=== PATIENT | male | born 1985 | race Caucasian/White ===

== ENCOUNTER 2020-05-28 10:28 | Emergency (ER) | payer OTHER ==
[~2020-05-28] VITALS: Ht 170.2 cm; Wt 73.5 kg
--- OUTSIDE RECORDS SUMMARY | ~2020-05-28 | XMS | Encounter Summary ---
Demographics + + + | Address | [address] | | | [place] [address] | + + + | Home Phone | | + + + | Preferred Language | Unknown | + + + | Marital Status | | + + + | Christian Affiliation | 1013 | + + + | Race | Unknown | + + + | Ethnic Group | Unknown | + + + Author + + + | Author | [facility] | | | and [place] | + + + | Organization | [facility] | | | and [place] | + + + | Address | Unknown | + + + | Phone | Unavailable | + + + Support + + + + + | Name | Relationship | Address | Phone | + + + + + | Maria G Langston | ECON | [address] | | | | | [place] [address] | | + + + + + | James Langston | ECON | Unknown | | + + + + + Care Team Providers + +------+ + | Care Range Aide Name | Role | Phone | + +------+ + | Ferdinand Arguello MD | PCP | | + +------+ + Reason for Visit + + + | Reason | Comments | + + + | Ulcerative Colitis | microscopic colitis | + + + | Hematochezia | | + + + Evaluate & Treat (Routine) +--------+--------+ + + + + | Status | Reason | Specialty | Diagnoses / | Referred By | Referred To | | | | | Procedures | Contact | Contact | +--------+--------+ + + + + | Closed | | Gastroenterol | Diagnoses | Byers, | Ambrocio, | | | | ogy | Infectious | Job | Daniel Newsome MD | | | | | diarrhea(009 | Rubin, DO | [address], | | | | | .2) | [address] | [address] | | | | | Hemorrhage | [address], [address] | [place], | | | | | of rectum | [place], | [place] [address] | | | | | and anus | [place] | Phone: | | | | | Blood in | [address] | [phone] | | | | | stool | Phone: | Fax: | | | | | | [phone] | [phone] | | | | | | Fax: | | | | | | | [phone] | | +--------+--------+ + + + + Encounter Details +--------+---------+ + + + | Date | Type | Department | Care Team | Description | +--------+---------+ + + + | 02/23/ | Office | [facility] | Daniel Albrecht MD | Infectious | | 2015 | Visit | GASTROENTEROLOGY | [address], [facility] | diarrhea(009.2) | | | | [address] [facility] | [address] | (Primary Dx); | | | | [address] | [address] | Hemorrhage of rectum | | | | [address] | | and anus | | | | [phone] | | | +--------+---------+ + + + Social History + +-------+ +--------+------+ | Tobacco Use | Types | Packs/Day | Years | Date | | | | | Used | | + +-------+ +--------+------+ | Never Smoker | | | | | + +-------+ +--------+------+ + +---+---+---+ | Smokeless Tobacco: | | | | | Never Used | | | | + +---+---+---+ + + +---------+ + | Alcohol Use | Drinks/Week | oz/Week | Comments | + + +---------+ + | No | | | | + + +---------+ + + + + | Sex Assigned at | Date Recorded | | | | + + + | Not on file | | + + + documented as of this encounter Last Filed Vital Signs + + + + + | Vital Sign | Reading | Time Taken | Comments | + + + + + | Blood Pressure | 112/68 | 02/23/2015 2:58 PM | | | | | PDT | | + + + + + | Pulse | 112 | 02/23/2015 2:58 PM | | | | | PDT | | + + + + + | Temperature | - | - | | + + + + + | Respiratory Rate | 16 | 02/23/2015 2:58 PM | | | | | PDT | | + + + + + | Oxygen Saturation | 98% | 02/23/2015 2:58 PM | | | | | PDT | | + + + + + | Inhaled Oxygen | - | - | | | Concentration | | | | + + + + + | Weight | 73.5 kg (162 lb) | 02/23/2015 2:58 PM | | | | | PDT | | + + + + + | Height | 174 cm (5' 8.5") | 02/23/2015 2:58 PM | | | | | PDT | | + + + + + | Body Mass Index | 24.27 | 02/23/2015 2:58 PM | | | | | PDT | | + + + + + documented in this encounter Progress Notes Daniel Albrecht MD - 02/24/2015 1:22 PM PDT Subjective: Patient ID: Haroldo Langtson is a 29 y.o. male. HPI Comments: is seen with respect to diarrhea rectal bleeding abnormal biopsies on c olonoscopy side records including pathology reviewed The patient last part [place] first part of January had an episode where he had a sudden o nset of abdominal pain. Pain was periumbilical, and was intermittent but decreased with emre cuation. Seems increase prior to evacuation. His bowel pattern changed to 8-10 stools incl uding nocturnal stools. He would have urgency stools were loose and toward the end of his 3 day course of diarrhea and abdominal pain he had bright red blood per rectum. Patient had a low-grade fever. No other family members or acquaintances were ill. Prior to the onset o f the illness he had a tendency toward constipation. He would also have occasionally increa sed gas and dry stools would move his bowels daily or every other day. The patient denies c oming into contact with infected food, water. Was on amoxicillin for a mouth infection in [facility]. He had no prior difficulties with the antibiotic. Weight loss was intentional, of about 20 pounds prior to the above incident The patient underwent colonoscopy for evaluati on of the above symptoms intubation of the terminal ileum was accomplished and the mucosa wa s normal. Throughout the colon the mucosa of the colon appeared normal. Biopsies of the ri t transverse and left colon were obtained and returned as showing minimally active colitis nondiagnostic morning to the pathology report. Patient is currently back at his baseline. He's had no further bleeding was his bowels daily or every other day has no abdominal pain family history is negative for significant intestinal disorders he denies any prior GI sympt oms and denies extraintestinal manifestations of inflammatory bowel disease. According to t he patient's stool studies were obtained which were negative I do not have those results on hand Filed Vitals: 02/23/15 1458 BP: 112/68 Pulse: 112 Resp: 16 PainSc: 0 - No pain No Known Allergies Past Medical History Diagnosis Date Hematochezia Anxiety Depression Bipolar 1 disorder (HCC) Past Surgical History Procedure Laterality Date Colonoscopy 01/19/15 FINDINGS: Normal exam [facility] Dr. Byers Appendectomy Eye surgery age 4 "crossed eye" surgery Family History Problem Relation Age of Onset Diabetes Mother Diabetes Father Colon cancer Maternal Grandfather History Social History Marital Status: Spouse Name: N/A Number of Children: N/A Years of Education: N/A Social History Main Topics Smoking status: Never Smoker Smokeless tobacco: Never Used Alcohol Use: No Drug Use: No Sexual Activity: None Other Topics Concern None Social History Narrative Review of Systems Constitutional: Positive for fever and fatigue. HENT: Negative. Eyes: Negative. Respiratory: Negative. Cardiovascular: Negative. Gastrointestinal: Positive for diarrhea, constipation and blood in stool. Endocrine: Negative. Genitourinary: Negative. Musculoskeletal: Positive for back pain and arthralgias. Skin: Negative. Allergic/Immunologic: Negative. Neurological: Negative. Hematological: Negative. Psychiatric/Behavioral: Positive for dysphoric mood. The patient is nervous/anxious. Objective: Physical Exam Constitutional: He is oriented to person, place, and time. He appears well-developed and we ll-nourished. No distress. HENT: Head: Normocephalic and atraumatic. Right Ear: External ear normal. Left Ear: External ear normal. Nose: Nose normal. Mouth/Throat: Oropharynx is clear and moist. No oropharyngeal exudate. Eyes: Conjunctivae and EOM are normal. Pupils are equal, round, and reactive to light. Righ t eye exhibits no discharge. Left eye exhibits no discharge. No scleral icterus. Neck: Normal range of motion. Neck supple. No JVD present. No tracheal deviation present. Cardiovascular: Normal rate, regular rhythm, normal heart sounds and intact distal pulses. Exam reveals no gallop and no friction rub. No murmur heard. Pulmonary/Chest: Effort normal and breath sounds normal. No stridor. No respiratory distres s. He has no wheezes. He has no rales. He exhibits no tenderness. Abdominal: Soft. Bowel sounds are normal. He exhibits no distension and no mass. There is n o tenderness. There is no rebound and no guarding. Musculoskeletal: Normal range of motion. He exhibits no edema or tenderness. Lymphadenopathy: He has no cervical adenopathy. Neurological: He is alert and oriented to person, place, and time. No cranial nerve deficit . He exhibits normal muscle tone. Coordination normal. Skin: Skin is warm and dry. No rash noted. He is not diaphoretic. No erythema. No pallor. Psychiatric: He has a normal mood and affect. His behavior is normal. Judgment and thought content normal. Nursing note and vitals reviewed. Assessment: Probable infective gastroenteritis i.e. colitis resolved and self-limiting Medications used secondary to large volume frequent evacuations Bipolar disorder stable Plan: It was explained to the patient that the colon has a limited ways to respond to noxious sti muli such as infection ischemia or idiopathic. Given the fact that the [facility] mucosal surfaces were visually normal microscopic colitis is only seen on pathology exam without any hallmarks of inflammatory bowel disease etc. I do not feel that any further evaluation needs to be done or any treatment needs to be instituted. Patient will contact us if he has recurrent signs or symptoms such as diarrhea rectal bleed ing abdominal pain Portions of this report were transcribed using voice recognition software. Every effort wa s made to ensure accuracy; however, inadvertent computerized graduate rn errors may be pre sent. documented in this enc ounter Plan of Treatment +--------+---------+ + + + | Date | Type | Specialty | Care Team | Description | +--------+---------+ + + + | 06/04/ | Office | Primary Care | Rand Braxton | | | 2020 | Visit | | MD [address] | | | [address] [facility], | | | | | | [place] [address] | | | | | | [phone] | | | | | | | | +--------+---------+ + + + documented as of this encounter Visit Diagnoses + + | Diagnosis | + + | Infectious diarrhea(009.2) - Primary Infectious diarrhea | + + | Hemorrhage of rectum and anus | + + documented in this encounter
--- OUTSIDE RECORDS SUMMARY | ~2020-05-28 | XMS | Encounter Summary ---
Demographics + + + | Address | [address] | | | [place] [address] | + + + | Home Phone | | + + + | Preferred Language | Unknown | + + + | Marital Status | | + + + | Mormon Affiliation | 1013 | + + + | Race | Unknown | + + + | Ethnic Group | Unknown | + + + Author + + + | Author | [facility] | | | and [place] | + + + | Organization | [facility] | | | and [...] | | | | | [place] [address] | | + + + + + | James Langston | ECON | Unknown | | + + + + + Care Team Providers + +------+ + | Care Sales Recruiter Name | Role | Phone | + +------+ + | Ferdinand Arguello MD | PCP | | + +------+ + Reason for Visit + + + | Reason | Comments | + + + | Mental Health | | | Evaluation | | + + + Encounter Details +--------+ + + + + | Date | Type | Department | Care Team | Description | +--------+ + + + + | 12/05/ | Emergency | [facility] | Miguel Angel Cornelius | Depression, | | 2017 | | [facility] | [address] | unspecified | | | | [facility] | [address] | depression type | | | | [address] [place], [place] | [place] [address] | (Primary Dx); | | | | [address] | [phone] | Suicidal ideations | | | | [phone] | | | +--------+ + + + + Social History + +-------+ [...] + + + | Blood Pressure | 121/75 | 12/05/2017 3:50 PM | | | | | PST | | + + + + + | Pulse | 108 | 12/05/2017 3:50 PM | | | | | PST | | + + + + + | Temperature | 37 C (98.6 F) | 12/05/2017 3:50 PM | | | | | PST | | + + + + + | Respiratory Rate | 16 | 12/05/2017 3:50 PM | | | | | PST | | + + + + + | Oxygen Saturation | 97% | 12/05/2017 3:50 PM | | | | | PST | | + + + + + | Inhaled Oxygen | - | - | | | Concentration | | | | + + + + + | Weight | 74.8 kg (165 lb) | 12/05/2017 10:15 AM | | | | | PST | | + + + + + | Height | 170.2 cm (5' 7") | 12/05/2017 10:15 AM | | | | | PST | | + + + + + | Body Mass Index | 25.84 | 12/05/2017 10:15 AM | | | | | PST | | + + + + + documented in this encounter Discharge Instructions Miguel Angel Mtz DO - 12/05/2017Follow up with your primary provider upon returning home. AttachmentsThe following attachments cannot be sent through Care Everywhere.Suicidal, 71-Ho ur Hold (Indian)documented in this encounter Medications at Time of Discharge + + + +---------+--------+ + | Medication | Sig | Dispensed | Refills | Start | End Date | | | | | | Date | | + + + +---------+--------+ + | cloNIDine | Take 0.1 mg by mouth | | 0 | | | | (CATAPRES) 0.1 mg | 2 times daily. | | | | | | tablet | | | | | | + + + +---------+--------+ + | lamotrigine | Take 400 mg by mouth | | 0 | | | | (LAMICTAL) 200 MG | Daily. | | | | | | tablet | | | | | | + + + +---------+--------+ + | traZODone | Take 100 mg by mouth | | 0 | | | | (DESYREL) 100 mg | nightly. | | | | | | tablet | | | | | | + + + +---------+--------+ + | benztropine | Take 1 mg by mouth 2 | | 0 | | | | (COGENTIN) 1 mg | times daily. | | | | 9 | | tablet | | | | | | + + + +---------+--------+ + | citalopram | Take 20 mg by mouth | | 0 | | | | (CELEXA) 10 mg | Daily. | | | | 9 | | tablet | | | | | | + + + +---------+--------+ + documented as of this encounter ED Notes Yaima Parker RN - 12/05/2017 5:47 PM PSTSecure Transport here to take pt [facility]. at bedside. Meds given as ordered. Pt preparing for transfer. Bag of belongings , including cell phone given to transport personnel. Yaima Patrick RN - 12/05/2017 5:35 PM PSTPt requested nausea med prior to transport, and "something for anxiety". Orders received Amanda Burgos CNA - 12/05/2017 4:47 PM PSTPt's brought in a bag of clothes to be transported with the pt. 4 :47 PM Yaima Patrick RN - 12/05/2017 3:38 PM PSTPt pending transfer to [facility]; pt, informed. Yaima Patrick RN - 12/05/2017 3:24 PM PSTUp to BR to void, staff accompanying to B r; gait steady, indep P Yaima Shannon RN - 12/05/2017 2:15 PM PSTPt updated on facility status. Denies need s. Yaima Patrick RN - 12/05/2017 1:40 PM PSTNo change in assessment noted. [facility] still working on placement /accepting facility. Pt has been up to void, has eaten meal. eith, Yaima Spicer RN - 12/05/2017 12:35 PM PSTPt resting quietly in room. No change noted. No complaint or needs voiced. Yaima Patrick RN - 12/05/2017 11:3 7 AM ANAMARIA Denny pier worker, in [place], has been in to see pt. Working on plan for placeme nt. Betty Decker, - 12/05/2017 10:50 AM PSTFormatting of this note might be different from the or iginal. [facility] Emergency Department Provider Note Name: Haroldo Langston Date: 12/05/2017 : 1985 Room Number: ED03 PCP: Ferdinand Arguello MD ED COURSE Pt was seen and evaluated in room 3. Patient was complaining of suicidal ideations and incr easing depression. He has also had some auditory hallucinations. Blood work was performed to rule out medical causes of his symptoms. Blood work was unremarkable. Urine drug screen was negative. Patient was cleared medicall y. Patient was seen by [facility]. Arrangements were made for the patient to go to [facility]. I spoke with the physician there who accepted the patient. Clinical Impression and Plan Final diagnoses: Depression, unspecified depression type Suicidal ideations ED Prescriptions None Extended ED Note CC: Chief Complaint Patient presents with Mental Health Evaluation Method of Arrival: walk-in History obtained from: patient and . HPI: Haroldo Langston is a 32 y.o. male who presents with suicidal ideations intermittent fo r years and worsened over the last couple of days. He also has hx of self-harm behavior and has been placed in psychiatric hospitals 3 times prior. [facility] He was stopped once before by the thought of his and kids, however, his pres ent feels are greater than before. He has been thinking back to past events lately that have increased his feelings of depression. He last used EtOH 2 days ago and has also recently us ed opiates, but denies any recent marijuana or other recreational drugs. He also complains o f BURK and back pain along with auditory hallucinations. Review of Systems Review of Systems Constitutional: Negative for fever. Respiratory: Negative for shortness of breath. Cardiovascular: Negative for chest pain. Gastrointestinal: Negative for abdominal pain. Musculoskeletal: Positive for back pain. Skin: Negative for rash. Neurological: Positive for headaches. Psychiatric/Behavioral: Positive for hallucinations and suicidal ideas. Physical Exam Pulse: 120- Resp: 19- BP: (!) 130/92 - SpO2: 99 % - Temp: 36.5 C (97.7 F) Physical Exam Constitutional: He is oriented to person, place, and time. He appears well-developed and we ll-nourished. No distress. HENT: Head: Normocephalic and atraumatic. Eyes: Conjunctivae are normal. Neck: Neck supple. Cardiovascular: Normal rate, regular rhythm, normal heart sounds and intact distal pulses. Exam reveals no gallop and no friction rub. No murmur heard. Pulmonary/Chest: Effort normal and breath sounds normal. No respiratory distress. He has no wheezes. He has no rales. He exhibits no tenderness. Abdominal: Soft. Bowel sounds are normal. There is no tenderness. Musculoskeletal: He exhibits no edema. Neurological: He is alert and oriented to person, place, and time. Skin: Skin is warm and dry. He is not diaphoretic. Psychiatric: He exhibits a depressed mood. He expresses suicidal ideation. He expresses doris cidal plans. Nursing note and vitals reviewed. Past Medical, Surgical, Social, and Family History Past Medical History: Diagnosis Date Anxiety Bipolar 1 disorder (HCC) Depression Hematochezia Past Surgical History: Procedure Laterality Date APPENDECTOMY COLONOSCOPY 01/19/15 FINDINGS: Normal exam Dannielle Byers EYE SURGERY age 4 "crossed eye" surgery Social History Substance Use Topics Smoking status: Never Smoker Smokeless tobacco: Never Used Alcohol use No Previous Medications BENZTROPINE (COGENTIN) 1 MG TABLET Take 1 mg by mouth 2 times daily. CITALOPRAM (CELEXA) 10 MG TABLET Take 10 mg by mouth Daily. CLONIDINE (CATAPRES) 0.1 MG TABLET Take 0.1 mg by mouth 2 times daily. LAMOTRIGINE (LAMICTAL) 200 MG TABLET Take 300 mg by mouth Daily. TRAZODONE (DESYREL) 100 MG TABLET Take 100 mg by mouth nightly. This document serves as a record of the serviced and decision personally performed by Batsheva Cornelius,*. It was created on their behalf by Maikel Hopson, a trained medical scri be. The creation of this document is based on the provider's statements to the medical scrib e. Miguel Angel Cornelius DO 12/05/17 1701 [address], Batsheva Spicer RN - 12/05/2017 10:40 AM PSTWife at bedside. Calm, concerned demeanor. Yaima Patrick RN - 12/05/19 18 10:38 AM PSTCHD crisis worked aware of pt, situation. Paula Lazo RN - 12/05/2017 10:14 AM PSTPt her e for mental health eval. "I want to ", Pt sent by [facility] documented in this encounter Plan of Treatment +--------+---------+ + + + | Date | Type | Specialty | Care Team | Description | +--------+---------+ + + + | 06/04/ | Office | Primary Care | Rand Braxton | | | 2019 | Visit | | MD [address] | | | | | | [facility], | | | | | | [place] [address] | | | | | | [phone] | | | | | | | | +--------+---------+ + + + documented as of this encounter Procedures + +--------+ + + + | Procedure Name | Priori | Date/Time | Associated Diagnosis | Comments | | | ty | | | | + +--------+ + + + | TSH, REFLEX FREE T4 | Routin | 12/05/2017 | | Results for this | | | e | 10:33 AM | | procedure are in the | | | | PST | | results section. | + +--------+ + + + | CBC WITH | STAT | 12/05/2017 | | Results for this | | DIFFERENTIAL | | 10:33 AM | | procedure are in the | | | | PST | | results section. | + +--------+ + + + | ALCOHOL | STAT | 12/05/2017 | | Results for this | | | | 10:33 AM | | procedure are in the | | | | PST | | results section. | + +--------+ + + + | ACETAMINOPHEN LEVEL | STAT | 12/05/2017 | | Results for this | | | | 10:33 AM | | procedure are in the | | | | PST | | results section. | + +--------+ + + + | SALICYLATE LEVEL | STAT | 12/05/2017 | | Results for this | | | | 10:33 AM | | procedure are in the | | | | PST | | results section. | + +--------+ + + + | COMPREHENSIVE | STAT | 12/05/2017 | | Results for this | | METABOLIC PANEL | | 10:33 AM | | procedure are in the | | | | PST | | results section. | + +--------+ + + + | DRUGS OF ABUSE, | STAT | 12/05/2017 | | Results for this | | SCREEN, URINE | | 10:30 AM | | procedure are in the | | | | PST | | results section. | + +--------+ + + + documented in this encounter Results TSH, Reflex Free T4 (12/05/2017 10:33 AM PST) + +-------+ + + + | Component | Value | Ref Range | Performed | Pathologist | | | | | At | Signature | + +-------+ + + + | TSH | 2.33 | 0.36 - 3.74 | [facility] | | | | | uIU/mL | [facility] | | | | [facility] | | | | | | [facility] | | + +-------+ + + + + + | Specimen | + + | Blood | + + + + + + + | Performing | Address | City/State/Zipcode | Phone Number | | Organization | | | | + + + + + | [facility] | [address] | [place] | [phone] | | [facility] | | [address] | | + + + + + Ethanol (12/05/2017 10:33 AM PST) + +-------+ + + + | Component | Value | Ref Range | Performed | Pathologist | | | | | At | Signature | + +-------+ + + + | ALCOHOL, | <3 | 0 - 10 mg/dL | [facility] | | | SERUM/PLASM | | | [facility] | | | A | | | [facility] | | | | | | LAB[facility]ATORY | | + +-------+ + + + + + | Specimen | + + | Blood | + + + + + + + | Performing | Address | City/State/Zipcode | Phone Number | | Organization | | | | + + + + + | [facility] | [address] | [place] | [phone] | | [facility] | | [address] | | + + + + + Salicylate Level (12/05/2017 10:33 AM PST) + + + + + + | Component | Value | Ref Range | Performed | Pathologist | | | | | At | Signature | + + + + + + | Salicylate | 1.6 (L)Comment: | 3.0 - 20.0 | [facility] | | | Level | Reference Range: 2.0 - | mg/dL | [facility] | | | | 10.0 mg/dL | | [facility] | | | | Antipyretic/Biadhghir17. | | LABORATORY | | | | 0 - 25.0 mg/dL | | | | | | Anti-Inflammatory> 30.0 | | | | | | mg/dL Potentially Toxic | | | | | | | | | | + + + + + + + + | Specimen | + + | Blood | + + + + + + + | Performing | Address | City/State/Zipcode | Phone Number | | Organization | | | | + + + + + | [facility] | [address] | [place], [place] | [phone] | | [facility] | | [address] | | + + + + + Acetaminophen Level (12/05/2017 10:33 AM PST) + +---------+ + + + | Component | Value | Ref Range | Performed | Pathologist | | | | | At | Signature | + +---------+ + + + | Acetaminoph | <=2 (L) | 10 - 20 ug/mL | [facility] | | | en Level | | | [facility] | | | | [facility] | | | | | | [facility]ATORY | | + +---------+ + + + + + | Specimen | + + | Blood | + + + + + | Narrative | Performed At | + + + | THERAPEUTIC 10.0-20.0 ug/mL POSSIBLE HEPATIC DAMAGE > 150.0 ug/mL | [facility] | | POTENTIALLY TOXIC > 200.0 ug/mL | HOSPITAL | | | LABORATORY | + + + + + + + + | Performing | Address | City/State/Zipcode | Phone Number | | Organization | | | | + + + + + | [facility] | [address] | [place] | [phone] | | [facility] | | [address] | | + + + + + Comprehensive Metabolic Panel (12/05/2017 10:33 AM PST) + + + + + + | Component | Value | Ref Range | Performed | Pathologist | | | | | At | Signature | + + + + + + | Na | 137 | 132 - 143 | [facility] | | | | | mmol/L | [facility] | | | | | [facility] | | | | | | [facility] | | + + + + + + | K | 4.2 | 3.3 - 4.9 | [facility] | | | | | mmol/L | [facility] | | | [facility] | | [facility] | | | | | | LAB[facility]ATORY | | + + + + + + | Cl | 101 | 95 - 108 mmol/L | [facility] | | | | | | [facility] | | | | | | [facility] | | + + + + + + | CO2 | 24 | 23 - 34 mmol/L | [facility] | | | | | [facility] | | | | | | [facility] | | + + + + + + | Anion Gap | 12 | 7 - 16 mmol/L | [facility] | | | | | [facility] | | | | | | [facility] | | + + + + + + | Glucose | 105 | 70 - 110 mg/dL | [facility] | | | | | [facility] | | | | | | [facility] | | + + + + + + | BUN | 13 | 5 - 26 mg/dL | [facility] | | | | | [facility] | | | | | | [facility] | | + + + + + + | Creatinine | 1.18 | 0.70 - 1.40 | [facility] | | | | | mg/dL | [facility] | | | | | [facility] | | | | | | [facility] | | + + + + + + | eGFR if not | >60Comment: GLOMERULAR | >=60 | [facility] | | | | FILTRATION | mL/min/1.73m2 | [facility] | | | [place] | RATE,ESTIMATED | | [facility]OSPITAL | | | | mL/min/1.68i5Ejyy than | | LABORATORY | | | | 60 Chronic kidney | | | | | | disease,if found over a | | | | | | 3-month period.Less than | | | | | | 15 Kidney failureFor | | | | | | | | | | | | Americans,multiply the | | | | | | calculated GFR by 1.21. | | | | | | | | | | + + + + + + | Calcium | 9.7 | 8.3 - 10.0 | [facility] | | | | | mg/dL | [facility] | | | | | | [facility] | | + + + + + + | Albumin | 4.5 | 3.0 - 4.5 g/dL | [facility] | | | | | | [facility] | [facility] | | | | | | [facility] | | + + + + + + | Bilirubin | 0.4 | 0.0 - 1.2 mg/dL | [facility] | | | Total | | | [facility] | | | | [facility] | | | | | | [facility] | | + + + + + + | Total | 8.4 | 6.6 - 8.5 g/dL | [facility] | | | Protein | | | [facility] | | | | | | [facility] | | | | | | [facility] | | + + + + + + | AST | 25 | 0 - 38 U/L | [facility] | | | | | | [facility] | | | | | | [facility] | | + + + + + + | ALT | 79 (H) | 16 - 63 U/L | [facility] | | | | | | [facility] | | | | | | [facility] | | + + + + + + | Alkaline | 71 | 46 - 116 U/L | [facility] | | | Phosphatase | | | [facility] | | | | | | [facility] | | + + + + + + | Globulin | 3.9 | g/dL | [facility] | | | | | | [facility] | | | | | | [facility] | | + + + + + + | Albumin/Jyotsna | 1.2 | | [facility] | | | bulin Ratio | | | [facility] | [facility] | [facility] | | | | | | [facility] | | + + + + + + | BUN/Creatin | 11.0 | 7.0 - 24.0 | [facility] | | | ine Ratio | | | [facility] | [facility] | | | | | | [facility] | | + + + + + + + + | Specimen | + + | Blood | + + + + + + + | Performing | Address | City/State/Zipcode | Phone Number | | Organization | | | | + + + + + | [facility] | [address] | [place] | [phone] | | [facility] | | [address] | | + + + + + CBC with Differential (12/05/2017 10:33 AM PST) + +---------+ + + + | Component | Value | Ref Range | Performed | Pathologist | | | | | At | Signature | + +---------+ + + + | White Blood | 4.8 | 4.6 - 10.5 K/uL | [facility] | | | Cells | | | [facility] | | | | | | [facility] | | + +---------+ + + + | Red Blood | 5.24 | 4.36 - 5.83 | [facility] | | | Cells | | M/uL | [facility] | | | | | | [facility] | | + +---------+ + + + | Hemoglobin | 15.9 | 13.1 - 17.4 | [facility] | | | | | g/dL | [facility] | | | | | | [facility] | | + +---------+ + + + | Hct | 44.8 | 39.0 - 51.9 % | [facility] | | | | | | [facility] | | | | | | [facility] | | + +---------+ + + + | MCV | 85.5 | 82.0 - 96.0 fL | [facility] | | | | | | [facility] | | | | | | [facility] | | + +---------+ + + + | MCH | 30.3 | 27.7 - 32.3 pg | [facility] | | | | | | [facility] | | | | | | [facility] | | + +---------+ + + + | MCHC | 35.5 | 32.0 - 36.9 | [facility] | | | | | g/dL | [facility] | | | | | | [facility] | | + +---------+ + + + | RDW-CV | 12.5 | 0.0 - 17.0 % | [facility] | | | | | | [facility] | [facility] | | | | | | [facility] | | + +---------+ + + + | Platelet | 256 | 150 - 450 K/uL | [facility] | | | Count | | | [facility] | | | | | | [facility] | | + +---------+ + + + | MPV | 8.6 (L) | 9.4 - 12.4 fL | [facility] | | | | | | [facility] | | | | | | [facility] | | + +---------+ + + + | % | 64.8 | 42.0 - 76.0 % | [facility] | | | Neutrophils | | | [facility] | | [facility] | [facility] | | | | | | [facility] | | + +---------+ + + + | % | 26.5 | 20.0 - 40.0 % | [facility] | | | Lymphocytes | | | [facility] | [facility] | [facility] | | | | | | [facility] | | + +---------+ + + + | % Monocytes | 7.7 | 0.0 - 12.0 % | [facility] | | | | | | [facility] | | | | | | [facility] | | + +---------+ + + + | % | 0.4 | 0.0 - 7.0 % | [facility] | | | Eosinophils | | | [facility] | [facility] | [facility] | | | | | | [facility] | | + +---------+ + + + | % Basophils | 0.2 | 0.0 - 2.0 % | [facility] | | | | | | [facility] | | [facility] | | | | | | [facility] | | + +---------+ + + + | % Immature | 0.4 | 0.0 - 0.5 % | [facility] | | | Granulocyte | | | [facility] | | | s | | | [facility] | | | | | | LAB[facility]ATORY | | + +---------+ + + + | Absolute | 3.13 | 2.80 - 7.70 | [facility] | | | Neutrophils | | K/uL | [facility] | | | | | | [facility] | | + +---------+ + + + | Absolute | 1.28 | 1.20 - 3.30 | [facility] | | | Lymphocytes | | K/uL | [facility] | [facility] | | | | | | [facility] | | + +---------+ + + + | Absolute | 0.37 | 0.00 - 1.60 | [facility] | | | Monocytes | | K/uL | [facility] | [facility] | | | | | | [facility] | | + +---------+ + + + | Absolute | 0.02 | 0.00 - 0.70 | [facility] | | | Eosinophils | | K/uL | [facility] | [facility] | | | | | | [facility] | | + +---------+ + + + | Absolute | 0.01 | 0.00 - 0.20 | [facility] | | | Basophils | | K/uL | [facility] | | | | [facility] | | | | | | [facility] | | + +---------+ + + + | Absolute | 0.02 | 0.00 - 0.15 | [facility] | | | Immature | | K/UL | [facility] | | | Granulocyte | | | HOSPITAL | | | s | | | LABORATORY | | + +---------+ + + + | % nRBC | 0 | 0 - 0 per 100 | [facility] | | | | | WBC's | [facility] | | | | | [facility] | | | | | | [facility] | | + +---------+ + + + | Absolute | 0.00 | 0.00 - 0.01 | [facility] | | | nRBC | | K/UL | [facility] | | | | [facility] | | | | | | [facility] | | + +---------+ + + + + + | Specimen | + + | Blood | + + + + + + + | Performing | Address | City/State/Zipcode | Phone Number | | Organization | | | | + + + + + | [facility] | [address] | [place] | [phone] | | [facility] | | [address] | | + + + + + Drugs of Abuse, Screen, Urine (12/05/2017 10:30 AM PST) + + + + + + | Component | Value | Ref Range | Performed | Pathologist | | | | | At | Signature | + + + + + + | Cannabinoid | Negative | Negative | [facility] | | | s Screen, | | | [facility] | | | Urine | | | [facility] | | | | | | LAB[facility]ATORY | | + + + + + + | Cocaine | Negative | Negative | [facility] | | | Screen, | | | [facility] | | | Urine | | | [facility] | | | | | | [facility]AT[facility] | | + + + + + + | Phencyclidi | Negative | Negative | [facility] | | | ne Screen, | | | [facility] | | | Urine | | | [facility] | | | | | | [facility]AT[facility] | | + + + + + + | Methampheta | Negative | Negative | [facility] | | | mine | | | [facility] | | | Screen, | | | [facility]OSPITAL | | | Urine | | | LABORATORY | | + + + + + + | Opiates | Negative | Negative | [facility] | | | Screen, | | | [facility] | | | Urine | | | [facility] | | | | | | [facility] | | + + + + + + | Amphetamine | Negative | Negative | [facility] | | | Screen, | | | [facility] | | | Urine | | | [facility] | | | | | | [facility] | | + + + + + + | Benzodiazep | Negative | Negative | [facility] | | | leah | | | [facility] | | | Screen, | | | [facility]OSPITAL | | | Urine | | | LABORATORY | | + + + + + + | Tricyclic | Negative | Negative | [facility] | | | Antidepress | | | [facility] | | | ants | | | HOSPITAL | | | Screen, | | | LABORATORY | | | Urine | | | | | + + + + + + | Methadone | Negative | Negative | [facility] | | | Screen, | | | [facility] | | | Urine | | | [facility] | | | | | | LAB[facility]ATORY | | + + + + + + | Barbiturate | Negative | Negative | [facility] | | | s Screen, | | | [facility] | | | Urine | | | [facility] | | | | | | [facility] | | + + + + + + | Oxycodone | Negative | Negative | [facility] | | | Screen, | | | [facility] | | | Urine | | | [facility] | | | | | | LAB[facility]ATORY | | + + + + + + | Propoxyphen | Negative | Negative | [facility] | | | e Screen, | | | [facility] | | | Urine | | | [facility]OS[facility] | | | | | | LAB[facility]ATORY | | + + + + + + | Buprenorphi | Negative | Negative | [facility] | | | ne Screen, | | | [facility] | | | Urine | | | [facility] | | | | | | LAB[facility]ATORY | | + + + + + + + + | Specimen | + + | Urine - Urine | | specimen (specimen) | + + + + + | Narrative | Performed At | + + + | Urine Drug Screen Threshold concentrations AMPHETAMINE | [facility] | | 500 ng/mL BARBITURATES | HOSPITAL | | 200 ng/mL BENZODIAZEPINES 150 ng/mL | LABORATORY | | BUPRENORPHINE 10 ng/mL COCAINE | | | 150 ng/mL METHAMPHETAMINES | | | 500 ng/mL METHADONE 200 ng/mL | | | OPIATES 100 ng/mL | | | OXYCODONE 100 ng/mL PHENCYCLIDINE | | | 25 ng/mL PROPOXYPHENE | | | 300 ng/mL CANNABINOIDS 50 ng/mL | | | TRICYCLIC ANTIDEPRES 300 ng/mL | | + + + + + + + + | Performing | Address | City/State/Zipcode | Phone Number | | Organization | | | | + + + + + | [facility] | [address] | [place] | [phone] | | [facility] | | [address] | | + + + + + documented in this encounter Visit Diagnoses + + | Diagnosis | + + | Depression, unspecified depression type - Primary | + + | Suicidal ideations Suicidal ideation | + + documented in this encounter Administered Medications + +--------+ +------+------+------+ | Medication Order | MAR | Action | Dose | Rate | Site | | | Action | Date | | | | + +--------+ +------+------+------+ | diazePAM (VALIUM) tablet 5 mg | Given | 12/05/19 | 5 mg | | | | 5 mg, Oral, ONCE, 12/05/17 at | | 18 5:35 | | | | | 1745, For 1 dose | | PM PST | | | | + +--------+ +------+------+------+ +---+---+ | | | +---+---+ + +-------+ +------+---+---+ | ondansetron (ZOFRAN ODT) | Given | 12/05/19 | 4 mg | | | | disintegrating tablet 4 mg 4 mg, | | 18 5:44 | | | | | Oral, ONCE, 12/05/17 at 1745, | | PM PST | | | | | For 1 dose | | | | | | + +-------+ +------+---+---+ +---+---+ | | | +---+---+ documented in this encounter
--- OUTSIDE RECORDS SUMMARY | ~2020-05-28 | XMS | Encounter Summary ---
Demographics + + + | Address | [address] | | | [place] [address] | + + + | Home Phone | | + + + | Preferred Language | Unknown | + + + | Marital Status | | + + + | Amish Affiliation | 1013 | + + + | Race | Unknown | + + + | Ethnic Group | Unknown | + + + Author + + + | Author | [facility] | | | and [place] | + + + | Organization | [facility] | | | [...] | | | | | [place] [address] | | + + + + + | James Langston | ECON | Unknown | | + + + + + Care Team Providers + +------+ + | Care Manager Compliance Name | Role | Phone | + +------+ + | Ferdinand Arguello MD | PCP | | + +------+ + Encounter Details +--------+ + + + + | Date | Type | Department | Care Team | Description | +--------+ + + + + | 03/15/ | Hospital | [facility] | Jean-Paul Kwong | | | 2017 | Encounter | HOSPITAL EMERGENCY | [address] | | | | | [address] | [facility] | | | | | [address] [place] [place] | [place] [address] | | | | | [address] | [phone] | | | | | [phone] | | | +--------+ + + + [...] + + documented as of this encounter Medications at Time of Discharge [...] | + + + +---------+--------+ + | | Take 1 tablet by | | 0 | | | | HYDROcodone-acetamin | mouth as needed for | | | | 8 | | ophen (NORCO) 5-325 | Pain. | | | | | | mg per tablet | | | | | | + + + +---------+--------+ + documented as of this encounter Plan of Treatment +--------+---------+ + + + | Date | Type | Specialty | Care Team | Description | +--------+---------+ + + + | 06/04/ | Office | Primary Care | Rand Braxton | | | 2020 | Visit | | [address] | | | | | | [address] [facility], | | | | | | [place] [address] | | | | | | [phone] | | | | | | | | +--------+---------+ + + + documented as of this encounter Procedures + +--------+ + + + | Procedure Name | Priori | Date/Time | Associated Diagnosis | Comments | | | ty | | | | + +--------+ + + + | CBC W/AUTO | STAT | 03/15/2017 | | Results for this | | DIFFERENTIAL | | 4:25 PM | | procedure are in the | | | | PDT | | results section. | + +--------+ + + + | TSH | STAT | 03/15/2017 | | Results for this | | | | 4:25 PM | | procedure are in the | | | | PDT | | results section. | + +--------+ + + + | ALCOHOL | STAT | 03/15/2017 | | Results for this | | | | 4:25 PM | | procedure are in the | | | | PDT | | results section. | + +--------+ + + + | ACETAMINOPHEN LEVEL | STAT | 03/15/2017 | | Results for this | | | | 4:25 PM | | procedure are in the | | | | PDT | | results section. | + +--------+ + + + | SALICYLATE LEVEL | STAT | 03/15/2017 | | Results for this | | | | 4:25 PM | | procedure are in the | | | | PDT | | results section. | + +--------+ + + + | COMPREHENSIVE | STAT | 03/15/2017 | | Results for this | | METABOLIC PANEL | | 4:25 PM | | procedure are in the | | | | PDT | | results section. | + +--------+ + + + | URINALYSIS WITH | Routin | 03/15/2017 | | Results for this | | MICROSCOPIC WITH | e | 3:41 PM | | procedure are in the | | CULTURE IF INDICATED | | PDT | | results section. | + +--------+ + + + | DRUGS OF ABUSE, | Routin | 03/15/2017 | | Results for this | | SCREEN, URINE | e | 3:37 PM | | procedure are in the | | | | PDT | | results section. | + +--------+ + + + documented in this encounter Results CBC w/ Auto Differential (03/15/2017 4:25 PM PDT) + +-------+ + + + | Component | Value | Ref Range | Performed | Pathologist | | | | | At | Signature | + +-------+ + + + | WBC | 9.2 | 4.6 - 10.5 | EXTERNAL | | | | | 1000/mm3 | LAB | | + +-------+ + + + | RBC | 5.46 | 4.36 - 5.83 | EXTERNAL | | | | | mil/mm3 | LAB | | + +-------+ + + + | HGB, | 16.8 | 13.1 - 17.4 | EXTERNAL | | | External | | g/dL | LAB | | + +-------+ + + + | HCT, | 46 | 39.0 - 51.9 % | EXTERNAL | | | External | | | LAB | | + +-------+ + + + | MCV | 84 | 82 - 96 fl | EXTERNAL | | | | | | LAB | | + +-------+ + + + | MCH | 30.8 | 27.7 - 32.3 pg | EXTERNAL | | | | | | LAB | | + +-------+ + + + | MCHC | 36.5 | 32.0 - 36.9 | EXTERNAL | | | | | g/dL | LAB | | + +-------+ + + + | RDW-CV | 12.5 | <=17.0 % | EXTERNAL | | | | | | LAB | | + +-------+ + + + | RDW-SD | 38.1 | 34.0 - 57.0 fL | EXTERNAL | | | | | | LAB | | + +-------+ + + + | Platelet | 289 | 150 - 450 | EXTERNAL | | | Count | | 1000/mm3 | LAB | | | Plasma | | | | | + +-------+ + + + | MPV | 9.1 | 9.4 - 12.4 FL | EXTERNAL | | | | | | LAB | | + +-------+ + + + | % Segmented | 72 | 42.0 - 76.0 % | EXTERNAL | | | | | | LAB | | | Neutrophils | | | | | + +-------+ + + + | % | 20.4 | 20.0 - 40.0 % | EXTERNAL | | | Lymphocytes | | | LAB | | + +-------+ + + + | % Monocytes | 6.2 | 3.0 - 13.0 % | EXTERNAL | | | | | | LAB | | + +-------+ + + + | % | 0.3 | 0.0 - 7.0 % | EXTERNAL | | | Eosinophils | | | LAB | | + +-------+ + + + | % Basophils | 0.3 | 0.0 - 2.0 % | EXTERNAL | | | | | | LAB | | + +-------+ + + + | % Immature | 0.8 | 0.0 - 0.5 % | EXTERNAL | | | Granulocyte | | | LAB | | | s | | | | | + +-------+ + + + | % nRBC | 0 | 0.0 - 0.2 /100 | EXTERNAL | | | | | WBC | LAB | | + +-------+ + + + | Absolute | 6.65 | 2.80 - 7.70 | EXTERNAL | | | Neutrophils | | 1000/mm3 | LAB | | + +-------+ + + + | Absolute | 1.88 | 1.20 - 3.30 | EXTERNAL | | | Lymphocytes | | 1000/mm3 | LAB | | + +-------+ + + + | Absolute | 0.57 | 0.00 - 0.80 | EXTERNAL | | | Monocytes | | 1000/mm3 | LAB | | + +-------+ + + + | Absolute | 0.03 | 0.00 - 0.70 | EXTERNAL | | | Eosinophils | | 1000/mm3 | LAB | | + +-------+ + + + | Absolute | 0.03 | 0.00 - 0.20 | EXTERNAL | | | Basophils | | 1000/mm3 | LAB | | + +-------+ + + + | Absolute | 0.07 | 0.00 - 0.15 | EXTERNAL | | | Immature | | 1000/mm3 | LAB | | | Granulocyte | | | | | | s | | | | | + +-------+ + + + | Absolute | 0.01 | 0.00 - 0.01 | EXTERNAL | | | nRBC | | 1000/mm3 | LAB | | + +-------+ + + + | SLIDE | NO | | EXTERNAL | | | REVIEWED | | | LAB | | + +-------+ + + + + + | Specimen | + + | | + + + +---------+ + + | Performing | Address | City/State/Zipcode | Phone Number | | Organization | | | | + +---------+ + + | EXTERNAL LAB | | | | + +---------+ + + TSH (03/15/2017 4:25 PM PDT) + +-------+ + + + | Component | Value | Ref Range | Performed | Pathologist | | | | | At | Signature | + +-------+ + + + | TSH | 0.8 | 0.36 - 3.74 | EXTERNAL | | | | | mIU/L | LAB | | + +-------+ + + + + + | Specimen | + + | | + + + +---------+ + + | Performing | Address | City/State/Zipcode | Phone Number | | Organization | | | | + +---------+ + + | EXTERNAL LAB | | | | + +---------+ + + Salicylate Level (03/15/2017 4:25 PM PDT) + +-------+ + + + | Component | Value | Ref Range | Performed | Pathologist | | | | | At | Signature | + +-------+ + + + | Salicylate | 3 | 3 - 20 mg/dL | EXTERNAL | | | Level | | | LAB | | + +-------+ + + + + + | Specimen | + + | | + + + +---------+ + + | Performing | Address | City/State/Zipcode | Phone Number | | Organization | | | | + +---------+ + + | EXTERNAL LAB | | | | + +---------+ + + Acetaminophen Level (03/15/2017 4:25 PM PDT) + +-------+ + + + | Component | Value | Ref Range | Performed | Pathologist | | | | | At | Signature | + +-------+ + + + | Acetaminoph | 2 | 10.0 - 20.0 | EXTERNAL | | | en, S | | ug/mL | LAB | | + +-------+ + + + + + | Specimen | + + | | + + + +---------+ + + | Performing | Address | City/State/Zipcode | Phone Number | | Organization | | | | + +---------+ + + | EXTERNAL LAB | | | | + +---------+ + + Comprehensive Metabolic Panel (03/15/2017 4:25 PM PDT) + +-------+ + + + | Component | Value | Ref Range | Performed | Pathologist | | | | | At | Signature | + +-------+ + + + | Sodium | 139 | 132 - 143 | EXTERNAL | | | | | mmol/L | LAB | | + +-------+ + + + | Potassium | 3.6 | 3.3 - 4.9 | EXTERNAL | | | | | mmol/L | LAB | | + +-------+ + + + | Cl | 103 | 95 - 108 mmol/L | EXTERNAL | | | | | | LAB | | + +-------+ + + + | CO2 | 24 | 23 - 34 mmol/L | EXTERNAL | | | | | | LAB | | + +-------+ + + + | Anion Gap | 12 | 7 - 16 | EXTERNAL | | | | | | LAB | | + +-------+ + + + | Calcium | 9.2 | 8.3 - 10.0 | EXTERNAL | | | | | mg/dL | LAB | | + +-------+ + + + | Glucose | 96 | 70 - 110 mg/dL | EXTERNAL | | | | | | LAB | | + +-------+ + + + | BUN, Bld | 13 | 5 - 26 mg/dL | EXTERNAL | | | | | | LAB | | + +-------+ + + + | Creatinine | 0.98 | 0.70 - 1.40 | EXTERNAL | | | | | mg/dL | LAB | | + +-------+ + + + | BUN/Creatin | 13.3 | 7.0 - 24.0 | EXTERNAL | | | ine Ratio | | RATIO | LAB | | + +-------+ + + + | GFR | 60 | >=60 | EXTERNAL | | | ESTIMATE | | mL/min/1.73m2 | LAB | | | (REF) | | | | | + +-------+ + + + | Bilirubin, | 0.5 | <=1.2 mg/dL | EXTERNAL | | | Total | | | LAB | | + +-------+ + + + | Protein, | 8.2 | 6.6 - 8.5 g/dL | EXTERNAL | | | Total | | | LAB | | + +-------+ + + + | Albumin | 4.2 | 3.0 - 4.5 g/dL | EXTERNAL | | | | | | LAB | | + +-------+ + + + | Alkaline | 74 | 46 - 116 U/L | EXTERNAL | | | Phosphatase | | | LAB | | + +-------+ + + + | ALT, | 60 | 16 - 63 U/L | EXTERNAL | | | External | | | LAB | | + +-------+ + + + | AST, | 26 | <=38 U/L | EXTERNAL | | | External | | | LAB | | + +-------+ + + + + + | Specimen | + + | | + + + +---------+ + + | Performing | Address | City/State/Zipcode | Phone Number | | Organization | | | | + +---------+ + + | EXTERNAL LAB | | | | + +---------+ + + Ethanol (03/15/2017 4:25 PM PDT) + +-------+ + + + | Component | Value | Ref Range | Performed | Pathologist | | | | | At | Signature | + +-------+ + + + | Alcohol, | 10 | <=10 mg/dL | EXTERNAL | | | Ethyl (B) | | | LAB | | + +-------+ + + + + + | Specimen | + + | | + + + +---------+ + + | Performing | Address | City/State/Zipcode | Phone Number | | Organization | | | | + +---------+ + + | EXTERNAL LAB | | | | + +---------+ + + Urinalysis with Microscopic with Culture if Indicated (03/15/2017 3:41 PM PDT) + + + + + + | Component | Value | Ref Range | Performed | Pathologist | | | | | At | Signature | + + + + + + | Source | Clean Catch / VOID | | EXTERNAL | | | | | | LAB | | + + + + + + | Clarity, | CLEAR | CLEAR | EXTERNAL | | | Urine | | | LAB | | + + + + + + | Color, | YELLOW | | EXTERNAL | | | Urine | | | LAB | | + + + + + + | Specific | 1.02 | 1.005 - 1.030 | EXTERNAL | | | [place], | | | LAB | | | Urine | | | | | + + + + + + | pH, Urine | 6 | 5.0 - 7.0 pH | EXTERNAL | | | | | | LAB | | + + + + + + | Leukocyte | NEGATIVE | NEGATIVE /uL | EXTERNAL | | | Esterase, | | | LAB | | | Urine | | | | | + + + + + + | Nitrite, | NEGATIVE | NEGATIVE | EXTERNAL | | | Urine | | | LAB | | + + + + + + | Protein, | NEGATIVE | NEGATIVE mg/dL | EXTERNAL | | | Urine | | | LAB | | + + + + + + | Glucose, | NORMAL | NORMAL mg/dL | EXTERNAL | | | Urine | | | LAB | | + + + + + + | Ketones, | NEGATIVE | NEGATIVE mg/dL | EXTERNAL | | | Urine | | | LAB | | + + + + + + | Urobilinoge | NORMAL | NORMAL mg/dL | EXTERNAL | | | n, Urine | | | LAB | | + + + + + + | Bilirubin, | NEGATIVE | NEGATIVE mg/dL | EXTERNAL | | | Urine | | | LAB | | + + + + + + | Blood, | NEGATIVE | NEGATIVE /uL | EXTERNAL | | | Urine | | | LAB | | + + + + + + | White Blood | NONE SEEN | </= 5 /HPF | EXTERNAL | | | Cells, | | | LAB | | | Urine | | | | | + + + + + + | RBC | NONE SEEN | </= 5 PER HPF | EXTERNAL | | | | | | LAB | | + + + + + + | Bacteria, | NONE SEEN | NONE SEEN /HPF | EXTERNAL | | | UA | | | LAB | | + + + + + + | Culture | NO | | EXTERNAL | | | Indicated | | | LAB | | + + + + + + | Squamous | RARE | /LPF | EXTERNAL | | | Epithelial | | | LAB | | | Cells, | | | | | | Urine | | | | | + + + + + + + + | Specimen | + + | | + + + +---------+ + + | Performing | Address | City/State/Zipcode | Phone Number | | Organization | | | | + +---------+ + + | EXTERNAL LAB | | | | + +---------+ + + Drugs of Abuse, Screen, Urine (03/15/2017 3:37 PM PDT) + +-------+ + + + | Component | Value | Ref Range | Performed | Pathologist | | | | | At | Signature | + +-------+ + + + | THC RESULT | POS | NEG ng/mL | EXTERNAL | | | | | | LAB | | + +-------+ + + + | Phencyclidi | NEG | NEG ng/mL | EXTERNAL | | | ne | | | LAB | | + +-------+ + + + | Cocaine | NEG | NEG ng/mL | EXTERNAL | | | | | | LAB | | + +-------+ + + + | Methampheta | NEG | NEG ng/mL | EXTERNAL | | | mine | | | LAB | | + +-------+ + + + | Opiates | NEG | NEG ng/mL | EXTERNAL | | | | | | LAB | | + +-------+ + + + | Amphetamine | NEG | NEG ng/mL | EXTERNAL | | | s | | | LAB | | + +-------+ + + + | Benzodiazep | NEG | NEG ng/mL | EXTERNAL | | | leah | | | LAB | | | Screen, | | | | | | Urine | | | | | + +-------+ + + + | TCA Scrn | NEG | NEG ng/mL | EXTERNAL | | | | | | LAB | | + +-------+ + + + | Methadone | NEG | NEG ng/mL | EXTERNAL | | | Screen, | | | LAB | | | Urine | | | | | + +-------+ + + + | Barbiturate | NEG | NEG ng/mL | EXTERNAL | | | s | | | LAB | | + +-------+ + + + | Oxycodone | NEG | NEG ng/mL | EXTERNAL | | | | | | LAB | | + +-------+ + + + | Propoxyphen | NEG | NEG ng/mL | EXTERNAL | | | e | | | LAB | | + +-------+ + + + | Buprenorphi | NEG | NEG ng/mL | EXTERNAL | | | ne | | | LAB | | + +-------+ + + + + + | Specimen | + + | | + + + +---------+ + + | Performing | Address | City/State/Zipcode | Phone Number | | Organization | | | | + +---------+ + + | EXTERNAL LAB | | | | + +---------+ + + documented in this encounter Visit Diagnoses Not on filedocumented in this encounter"
--- OUTSIDE RECORDS SUMMARY | ~2020-05-28 | XMS | Encounter Summary ---
Demographics + + + | Address | [address] | | | [place] [address] | + + + | Home Phone | | + + + | Preferred Language | Unknown | + + + | Marital Status | | + + + | Confucianist Affiliation | 1013 | + + + | Race | Unknown | + + + | Ethnic Group | Unknown | + + + Author + + + | Author | [facility] | | | and [place] | + + + | Organization | [facility] | | | and [...] [address] [facility] | | | | | [place] [address] | | + + + + + | James Langston | ECON | Unknown | | + + + + + Care Team Providers + +------+ + | Care Wrinkle Chaser Name | Role | Phone | + +------+ + PCP | Unavailable | + +------+ + Encounter Details +--------+ + + + + | Date | Type | Department | Care Team | Description | +--------+ + + + + | 02/19/ | Hospital | [facility] | Jennie Armas | | | 2009 | Encounter | HOSPITAL EMERGENCY | [address] | | | | | [address] | [place], [place] | | | | | [address] [place], [place] | [address] | | | | | [address] | [phone] | | | | | [phone] | | | +--------+ + + + + Social History + +-------+ +--------+------+ | Tobacco Use | Types | Packs/Day | Years | Date | | | | | Used | | + +-------+ +--------+------+ | Never Assessed | | | | | + +-------+ +--------+------+ + + + | Sex Assigned at | Date Recorded | | | | + + + | Not on file | | + + + documented as of this encounter Plan of Treatment +--------+---------+ + + + | Date | Type | Specialty | Care Team | Description | +--------+---------+ + + + | 06/04/ | Office | Primary Care | Rand Braxton | | | 2019 | Visit | | [address] | | | | | | [address] [facility], | | | | | | [place] [address] | | | | | | [phone] | | | | | | | | +--------+---------+ + + + documented as of this encounter Visit Diagnoses Not on filedocumented in this encounter"
--- OUTSIDE RECORDS SUMMARY | ~2020-05-28 | XMS | Encounter Summary ---
Demographics + + + | Address | [address] | | | [place] [address] | + + + | Home Phone | | + + + | Preferred Language | Unknown | + + + | Marital Status | | + + + | Restorationist Affiliation | 1013 | + + + | Race | Unknown | + + + | Ethnic Group | Unknown | + + + Author + + + | Author | [facility] | | | and [place] | + + + | Organization | [facility] | | | and [...] [facility] | | | | | [place] [address] | | + + + + + | James Langston | ECON | Unknown | | + + + + + Care Team Providers + +------+ + | Care Cost Manager Name | Role | Phone | + +------+ + PCP | Unavailable | + +------+ + Encounter Details +--------+ + + + + | Date | Type | Department | Care Team | Description | +--------+ + + + + | 10/16/ | Hospital | [facility] | Elenita[facility]-Paul | | | 2009 | Encounter | HOSPITAL EMERGENCY | [address] | | | | | [address] | [facility] | | | | | [address] [place], [place] | [place] [address] | | | | | [address] | [phone] | | | | | [phone] | | | +--------+ + + + [...] | | | | | | [address] [facility], | | | | | | [place] [address] | | | | | | [phone] | | | | | | | | +--------+---------+ + + + documented as of this encounter Visit Diagnoses Not on filedocumented in this encounter"
--- OUTSIDE RECORDS SUMMARY | ~2020-05-28 | XMS | Encounter Summary ---
Demographics + + + | Address | [address] | | | [place] [address] | + + + | Home Phone | | + + + | Preferred Language | Unknown | + + + | Marital Status | | + + + | Taoist Affiliation | 1013 | + + + | Race | Unknown | + + + | Ethnic Group | Unknown | + + + Author + + + | Author | [facility] | | | and [place] | + + + | Organization | [facility] | | | [...] | | | | | [place] [address] | | + + + + + | James Langston | ECON | Unknown | | + + + + + Care Team Providers + +------+ + | Care Transit Police Officer Name | Role | Phone | + +------+ + | Ferdinand Arguello MD | PCP | | + +------+ + Encounter Details +--------+ + + + + | Date | Type | Department | Care Team | Description | +--------+ + + + + | 12/12/ | Hospital | [facility] | Ferdinand Arguello | | | 2017 | Encounter | HOSPITAL XRAY [address] | [address] | | | | | [address] [place] | [facility], [place] | | | | | [place], [place] | [address] | | | | | [address] | [phone] | | | | | [phone] | | | +--------+ + + + [...] | | | | | | [address] [facility], | | | | | | [place] [address] | | | | | | [phone] | | | | | | | | +--------+---------+ + + + documented as of this encounter Procedures + +--------+ + + + | Procedure Name | Priori | Date/Time | Associated Diagnosis | Comments | | | ty | | | | + +--------+ + + + | US RETROPERITONEAL | Routin | 12/12/2016 | | Results for this | | LIMITED | e | 6:47 AM | | procedure are in the | | | | PST | | results section. | + +--------+ + + + documented in this encounter Results US Retroperitoneal Limited (12/12/2016 6:47 AM PST) + + | Specimen | + + | | + + + + + | Narrative | Performed At | + + + | EXAMINATION: ECHO RENAL HISTORY: Kidney stones. COMPARISON | | | STUDY: None FINDINGS: The right kidney is normal in size, | | | contour and echogenicity. It measures 10.5 x 6.8 x 6.9 cm. There | | | is 4 mm echogenic focus with posterior shadowing centrally and | | | laterally. The left kidney is normal in size, contour and | | | echogenicity. It measures 10.4 x 6.2 x 5.2 cm. There is | | | prominence of renal pelvis No perinephric masses are identified. | | | No bladder wall thickening. Pre and postvoid residuals measure 133 | | | mL and 20 mL IMPRESSION: 1. 4 mm right renal stone. 2. Mild | | | prominence of left renal pelvis. Mild hydro is not excluded. | | | Consider CT evaluation if indicated. 3. Pre and postvoid bladder | | | volumes as above JOB #: [id number] Digitally Released by: Anjum | | | Brittani Read By: BRITTANI AQUINO MD Date: 12/12/2016 10:33 | | | | | + + + + + | Procedure Note | + + | Roe, Rad Results In - 11/15/2017 11:38 AM PST EXAMINATION: | | ECHO RENAL | | | | HISTORY: | | Kidney stones. | | | | COMPARISON STUDY: | | None | | | | FINDINGS: | | The right kidney is normal in size, contour and echogenicity. It measures | | 10.5 x 6.8 x 6.9 cm. There is 4 mm echogenic focus with posterior shadowing | | centrally and laterally. | | | | The left kidney is normal in size, contour and echogenicity. It measures 10.4 | | x 6.2 x 5.2 cm. There is prominence of renal pelvis | | | | No perinephric masses are identified. | | | | No bladder wall thickening. | | Pre and postvoid residuals measure 133 mL and 20 mL | | | | IMPRESSION: | | 1. 4 mm right renal stone. | | 2. Mild prominence of left renal pelvis. Mild hydro is not excluded. | | Consider CT evaluation if indicated. | | 3. Pre and postvoid bladder volumes as above | | | | | | JOB #: [id number] | | Digitally Released by: Brittani Aquino | | | | | | Read By: BRITTANI AQUINO MD | | Date: 12/12/2016 10:33 | | | + + documented in this encounter Visit Diagnoses Not on filedocumented in this encounter"
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
--- OUTSIDE RECORDS SUMMARY | ~2020-05-28 | XMS | Encounter Summary ---
Demographics + + + | Address | [address] | | | [place] [address] | + + + | Home Phone | | + + + | Preferred Language | Unknown | + + + | Marital Status | | + + + | Religion Affiliation | 1013 | + + + | Race | Unknown | + + + | Ethnic Group | Unknown | + + + Author + + + | Author | [facility] | | | and [place] | + + + | Organization | [facility] | | | [...] | | | | | [place] [address] | | + + + + + | James Langston | ECON | Unknown | | + + + + + Care Team Providers + +------+ + | Care Hearing Care Practitioner Name | Role | Phone | + +------+ + | Ferdinand Arguello MD | PCP | | + +------+ + Reason for Visit + + + | Reason | Comments | + + + | Back Pain | | + + + Encounter Details +--------+ + + + + | Date | Type | Department | Care Team | Description | +--------+ + + + + | 06/20/ | Emergency | [facility] | Nica Ramirez, | Strain of lumbar | | 2019 | | [facility]OSP[facility] | [employer]ER [address] | region, initial | | | | CENTER [address] | [place] [address] | encounter (Primary | | | | [place], [place] | [phone] | Dx); Sacroiliitis | | | | [address] | | (HCC); Lumbar | | | | [phone] | | paraspinal muscle | | | | | | spasm | +--------+ + + + + Social [...] Comments | + + +---------+ + | Yes | | | occasionally | + + +---------+ + + + [...] + + + | Blood Pressure | 132/96 | 06/20/2019 12:01 PM | | | | | PDT | | + + + + + | Pulse | 88 | 06/20/2019 12:01 PM | | | | | PDT | | + + + + + | Temperature | 36 C (96.8 F) | 06/20/2019 10:21 AM | | | | | PDT | | + + + + + | Respiratory Rate | 16 | 06/20/2019 12:01 PM | | | | | PDT | | + + + + + | Oxygen Saturation | 100% | 06/20/2019 12:01 PM | | | | | PDT | | + + + + + | Inhaled Oxygen | - | - | | | Concentration | | | | + + + + + | Weight | 77.1 kg (170 lb) | 06/20/2019 10:21 AM | | | | | PDT | | + + + + + | Height | 170.2 cm (5' 7") | 06/20/2019 10:21 AM | | | | | PDT | | + + + + + | Body Mass Index | 26.63 | 06/20/2019 10:21 AM | | | | | PDT | | + + + + + documented in this encounter Discharge Instructions Instructions Nica Ramirez FNP - 06/20/2019Patient to go home rest ice and alternate h eat 20 minutes every hour while you're awake today. Avoid any lifting or heavy activity for at least 3-5 days. Medications as directed. Medication may be sedating therefore no drink ing or driving with the medication. Follow-up your primary care in 5-7 days if not improved . ER if bowel or bladder incontinence and severe pain. AttachmentsThe following attachments cannot be sent through Care Everywhere.Back Pain, Reli eving (Spanish)Muscle Spasm (Spanish)Back Sprain/Strain (Spanish)documented in this encounte r Medications at Time of Discharge + + + +---------+ + + | Medication | Sig | Dispensed | Refills | Start | End Date | | | | | | Date | | + + + +---------+ + + | citalopram | take 1 tablet by | | 0 | 11/27/19 | | | (CELEXA) 40 mg | mouth daily | | | 19 | | | tablet | | | | | | + + + +---------+ + + | cloNIDine | Take 0.1 mg by mouth | | 0 | | | | (CATAPRES) 0.1 mg | 2 times daily. | | | | | | tablet | | | | | | + + + +---------+ + + | lamotrigine | Take 400 mg by mouth | | 0 | | | | (LAMICTAL) 200 MG | Daily. | | | | | | tablet | | | | | | + + + +---------+ + + | traZODone | Take 100 mg by mouth | | 0 | | | | (DESYREL) 100 mg | nightly. | | | | | | tablet | | | | | | + + + +---------+ + + | naproxen sodium | Take 1 tablet by | 20 | 0 | 06/20/20 | | | (ANAPROX) 550 MG | mouth Twice daily | tablet | | 19 | 9 | | tablet | as needed for up to | | | | | | | 10 days. | | | | | + + + +---------+ + + | tiZANidine | Take 1 tablet by | 12 | 0 | 06/20/20 | | | (ZANAFLEX) 4 mg | mouth every 8 hours | tablet | | 19 | 9 | | tablet | as needed for up to | | | | | | | 4 days. | | | | | + + + +---------+ + + documented as of this encounter ED Notes Nica Ramirez, CANDELARIA - 06/20/2019 10:30 AM PDT [facility] Emergency Department Provider Note Name: Haroldo Langston Date: 06/20/2019 : 1985 Room Number: ED02 PCP: Ferdinand Arguello MD ED COURSE Haroldo Langston is a 33 y.o. male who was seen and evaluated in ED02. Clinical conside rations include, but are not restricted to, degenerative disc disease, lumbar strain, lumbar pain, lumbar stenosis, paraspinal muscle spasm, sacroiliitis, sacroiliac joint dysfunction. Sciatica I discussed with the patient due to significant paraspinal muscle spasm and gluteus muscle spasm we will give Valium 10 mg by mouth, Toradol 30 mg IM and we will do a right SI joint i njection with Kenalog 40 mg, bupivacaine and 2% lidocaine. Discussed risks of injection to include bleeding, infection although very low percentage. Patient did sign consent understa nds risks versus the benefits. I will prescribe Zanaflex for home use along with naproxen he can start both of these tomor row as he was given medication here in the ER. Patient is improved after medication therefo re I will discharge him home with his with a week off of work to recover. He is to fol low-up with his primary care 1 week to clear his back for full duty. Discussed ER follow-up if bowel or bladder incontinence or severe pain. SI joint injection Patient prepped in a sterile fashion with Betadine, he was supine in bed. Injected 2% lido michael 1 mL, bupivacaine 1 mL, and 40 of Kenalog to total 3 mL's. After site prepped right S I injected after negative aspiration of blood or fluid. Patient tolerated the injection wel l no active bleeding or complications. Band-Aid applied. Patient given ice. Clinical Impression and Plan Final diagnoses: Strain of lumbar region, initial encounter Sacroiliitis (HCC) Lumbar paraspinal muscle spasm ED Prescriptions Sig tiZANidine (ZANAFLEX) 4 mg tablet Take 1 tablet by mouth every 8 hours as needed for up to 4 days. naproxen sodium (ANAPROX) 550 MG tablet Take 1 tablet by mouth Twice daily as needed for up to 10 days. Follow-up Information Ferdinand Arguello MD In 1 week. Specialty: Family Medicine Why: If symptoms worsen Contact information: [address] [place] [address] Orders competed in ER Medications triamcinolone acetonide (KENALOG-40) 40 mg/mL injection 40 mg (40 mg Intra-articular Given by Other 06/20/19 112) diazePAM (VALIUM) tablet 10 mg (10 mg Oral Given 06/20/19 1122) ketorolac (TORADOL) injection 30 mg (30 mg Intramuscular Given 06/20/19 112) Extended ED Note CC: Chief Complaint Patient presents with Back Pain Method of Arrival: walk-in History obtained from: Patient HPI: Haroldo Langston is a 33 y.o. male who presents to the Emergency Department with low ba ck pain. 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 He tells me he has had back pain in the past w hich is identical. He tells me he took 400 of naproxen before arrival. He denies any numbn ess or tingling although he has right sided and middle back pain into his gluteus. He denie s numbness or tingling. He has difficulty walking due to severe pain otherwise no severe we akness. He denies bowel or bladder incontinence. Review of Systems Review of Systems Constitutional: Negative. HENT: Negative. Eyes: Negative. Respiratory: Negative. Cardiovascular: Negative. Gastrointestinal: Negative. Endocrine: Negative. Genitourinary: Negative. Musculoskeletal: Positive for arthralgias, back pain and myalgias. Skin: Negative. Allergic/Immunologic: Negative. Neurological: Negative. Hematological: Negative. Psychiatric/Behavioral: Negative. Physical Exam Pulse: 94- Resp: 18- BP: 156/77 - SpO2: 100 % - Temp: 36 C (96.8 F) TEMPERATURE HISTORY 96H: Temp (96hrs), Av C (96.8 F), Min:36 C (96.8 F), Max:36 C (96.8 F) BLOOD PRESSURE HISTORY: Systolic (36hrs), Av , Min:132 , Max:156 Diastolic (36hrs), Av, Min:77, Max:96 CURRENT WEIGHT: @WTENG@ Wt Readings from Last 10 Encounters: 06/20/19 77.1 kg (170 lb) 12/03/18 72.6 kg (160 lb) 11/05/18 72.6 kg (160 lb) 02/07/18 73.9 kg (163 lb) 12/05/17 74.8 kg (165 lb) 02/23/15 73.5 kg (162 lb) 01/04/15 71.7 kg (158 lb) Physical Exam Constitutional: He is oriented to person, place, and time. He appears well-developed and we ll-nourished. He appears distressed (Due to pain and spasm.). HENT: Head: Normocephalic and atraumatic. Mouth/Throat: Oropharynx is clear and moist. Significant gingival disease Eyes: Pupils are equal, round, and reactive to light. Conjunctivae are normal. Neck: Normal range of motion. Neck supple. Cardiovascular: Normal rate, regular rhythm and intact distal pulses. Exam reveals no oneal p and no friction rub. No murmur heard. Pulmonary/Chest: Effort normal. Musculoskeletal: He exhibits tenderness. Lumbar back: He exhibits decreased range of motion, tenderness, pain and spasm. He exh ibits no bony tenderness. Back: Neurological: He is alert and oriented to person, place, and time. He has normal reflexes. No cranial nerve deficit. Skin: Skin is warm and dry. He is not diaphoretic. Psychiatric: He has a normal mood and affect. His behavior is normal. Judgment and thought content normal. Nursing note and vitals reviewed. LAB VALUES No results found for this or any previous visit (from the past 24 hour(s)). Radiological Studies No orders to display Past Medical, Surgical, Social, and Family History Past Medical History: Diagnosis Date Anxiety Bipolar 1 disorder (HCC) Depression Hematochezia Past Surgical History: Procedure Laterality Date APPENDECTOMY COLONOSCOPY 01/19/15 FINDINGS: Normal exam [facility] Dr. 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 lamotrigine (LAMICTAL) 200 MG tablet Take 400 mg by mouth Daily. traZODone (DESYREL) 100 mg tablet Take 100 mg by mouth nightly. ICD-10-CM ICD-9-CM 1. Strain of lumbar region, initial encounter S39.012A 847.2 2. Sacroiliitis (HCC) M46.1 720.2 3. Lumbar paraspinal muscle spasm M62.830 724.8 Discharge Instructions Patient to go home rest ice and alternate heat 20 minutes every hour while you're awake tod ay. Avoid any lifting or heavy activity for at least 3-5 days. Medications as directed. M edication may be sedating therefore no drinking or driving with the medication. Follow-up y our primary care in 5-7 days if not improved. ER if bowel or bladder incontinence and sever e pain. Discharge References/Attachments Back Pain, Relieving (Spanish) Muscle Spasm (Spanish) Back Sprain/Strain (Spanish) Strain of lumbar region, initial encounter (Primary) Sacroiliitis (HCC) Lumbar paraspinal muscle spasm Other orders - triamcinolone acetonide (KENALOG-40) 40 mg/mL injection 40 mg - diazePAM (VALIUM) tablet 10 mg - ketorolac (TORADOL) injection 30 mg - Scheduled surgery or procedure: Right SI joint injection sterile proceedure in room E R 2; 06/20/2019; Standing - tiZANidine (ZANAFLEX) 4 mg tablet; Take 1 tablet by mouth every 8 hours as needed for up to 4 days. Dispense: 12 tablet; Refill: 0 - naproxen sodium (ANAPROX) 550 MG tablet; Take 1 tablet by mouth Twice daily as neede d for up to 10 days. Dispense: 20 tablet; Refill: 0 This document serves as a record of the serviced and decision personally performed by CANDELARIA Maria. Parts of this note may have been created using [employer]anted which is a voice recogni tion software. It inherently makes mistakes with substitution of words that sound similar. Electronically signed by CANDELARIA Maria FNP 06/20/19 [id number] Paula Cespedes RN - 06/20/2019 10:19 AM PDTPrevious Back injuries in past. 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 Now having pain to right lower back. documented in this encounter Plan of Treatment +--------+---------+ + + + | Date | Type | Specialty | Care Team | Description | +--------+---------+ + + + | 06/04/ | Office | Primary Care | Irais Rand | | | 2020 | Visit | | [address] | | | | | | [address] [facility], | | | | | | [place] [address] | | | | | | [phone] | | | | | | | | +--------+---------+ + + + documented as of this encounter Visit Diagnoses + + | Diagnosis | + + | Strain of lumbar region, initial encounter - Primary | + + | Sacroiliitis (HCC) Sacroiliitis, not elsewhere classified | + + | Lumbar paraspinal muscle spasm Other symptoms referable to back | + + documented in this encounter Administered Medications + +--------+ +-------+------+------+ | Medication Order | MAR | Action | Dose | Rate | Site | | | Action | Date | | | | + +--------+ +-------+------+------+ | diazePAM (VALIUM) tablet 10 mg | Given | 06/20/20 | 10 mg | | | | 10 mg, Oral, ONCE, 06/20/19 | | 19 11:22 | | | | | at 1100, For 1 dose | | AM PDT | | | | + +--------+ +-------+------+------+ +---+---+ | | | +---+---+ + +-------+ +-------+---+ + | ketorolac (TORADOL) injection | Given | 06/20/20 | 30 mg | | Ventrogl | | 30 mg 30 mg, Intramuscular, | | 19 11:20 | | | uteal-Le | | ONCE, Sun06/20/19 at 1100, For 1 | | AM PDT | | | ft | | dose | | | | | | + +-------+ +-------+---+ + +---+---+ | | | +---+---+ + + + +-------+---+---+ | triamcinolone acetonide | Given by | 06/20/20 | 40 mg | | | | (KENALOG-40) 40 mg/mL injection | Other | 19 11:20 | | | | | 40 mg 40 mg, Intra-articular, | | AM PDT | | | | | ONCE, Sun06/20/19 at 1100, For 1 | | | | | | | dose, Shake well. Not for IV | | | | | | | use., | | | | | | + + + +-------+---+---+ +---+---+ | | | +---+---+ documented in this encounter
--- OUTSIDE RECORDS SUMMARY | ~2020-05-28 | XMS | Encounter Summary ---
Demographics + + + | Address | [address] | | | [place] [address] | + + + | Home Phone | | + + + | Preferred Language | Unknown | + + + | Marital Status | | + + + | Sikhism Affiliation | 1013 | + + + | Race | Unknown | + + + | Ethnic Group | Unknown | + + + Author + + + | Author | [facility] | | | and [place] | + + + | Organization | [facility] | | [...] | | | | | [place] [address] | | + + + + + | James Langston | ECON | Unknown | | + + + + + Care Team Providers + +------+ + | Care Education Reviewer Name | Role | Phone | + +------+ + | Ferdinand Arguello MD | PCP | | + +------+ + Encounter Details +--------+ + + + + | Date | Type | Department | Care Team | Description | +--------+ + + + + | 12/05/ | Orders Only | [facility] | Ene Villareal, | Strep throat | | 2019 | | [facility] | 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
--- OUTSIDE RECORDS SUMMARY | ~2020-05-28 | XMS | Encounter Summary ---
Demographics + + + | Address | [address] | | | [place] [address] | + + + | Home Phone | | + + + | Preferred Language | Unknown | + + + | Marital Status | | + + + | Pentecostalism Affiliation | 1013 | + + + [...] [facility] | | | | | [place] [address] | | + + + + + | James Langston | ECON | Unknown | | + + + + + Care Team Providers + +------+ + | Care Tub Operator Name | Role | Phone | + +------+ + PCP | Unavailable | + +------+ + Encounter Details +--------+ + + + + | Date | Type | Department | Care Team | Description | +--------+ + + + + | 07/21/ | Hospital | [facility] | [facility] | | | 2013 | Encounter | [facility] | [address] | | | | | CENTER [address] | [facility] | | | | | [address] [place], [place] | [place] [address] | | | | | [address] | [phone] | | | | | [phone] | | | +--------+ + + + [...] | | | | | | [address] [facility], | | | | | | [place] [address] | | | | | | [phone] | | | | | | | | +--------+---------+ + + + documented as of this encounter Procedures + +--------+ + + + | Procedure Name | Priori | Date/Time | Associated Diagnosis | Comments | | | ty | | | | + +--------+ + + + | CBC WITH MANUAL | STAT | 07/21/2014 | | Results for this | | DIFFERENTIAL | | 9:48 PM | | procedure are in the | | | | PDT | | results section. | + +--------+ + + + | TSH | STAT | 07/21/2014 | | Results for this | | | | 9:48 PM | | procedure are in the | | | | PDT | | results section. | + +--------+ + + + | T4, FREE | STAT | 07/21/2014 | | Results for this | | | | 9:48 PM | | procedure are in the | | | | PDT | | results section. | + +--------+ + + + | ALCOHOL | STAT | 07/21/2014 | | Results for this | | | | 9:48 PM | | procedure are in the | | | | PDT | | results section. | + +--------+ + + + | COMPREHENSIVE | STAT | 07/21/2014 | | Results for this | | METABOLIC PANEL | | 9:48 PM | | procedure are in the | | | | PDT | | results section. | + +--------+ + + + documented in this encounter Results CBC with Manual Differential (07/21/2014 9:48 PM PDT) + +-------+ + + + | Component | Value | Ref Range | Performed | Pathologist | | | | | At | Signature | + +-------+ + + + | WBC | 5.8 | 4.6 - 10.5 | EXTERNAL | | | | | 1000/mm3 | LAB | | + +-------+ + + + | RBC | 4.92 | 4.36 - 5.83 | EXTERNAL | | | | | mil/mm3 | LAB | | + +-------+ + + + | HGB, | 14.5 | 13.1 - 17.4 | EXTERNAL | | | External | | g/dL | LAB | | + +-------+ + + + | HCT, | 41.2 | 39.0 - 51.9 % | EXTERNAL | | | External | | | LAB | | + +-------+ + + + | MCV | 84 | 82 - 96 fl | EXTERNAL | | | | | | LAB | | + +-------+ + + + | MCH | 29.5 | 27.7 - 32.3 pg | EXTERNAL | | | | | | LAB | | + +-------+ + + + | MCHC | 35.2 | 32.0 - 36.9 | EXTERNAL | | | | | g/dL | LAB | | + +-------+ + + + | RDW-CV | 13.6 | <=17.0 % | EXTERNAL | | | | | | LAB | | + +-------+ + + + | RDW-SD | 40.7 | 34.0 - 57.0 fL | EXTERNAL | | | | | | LAB | | + +-------+ + + + | Platelet | 332 | 150 - 450 | EXTERNAL | | | Count | | 1000/mm3 | LAB | | | Plasma | | | | | + +-------+ + + + | MPV | 8.9 | 9.4 - 12.4 FL | EXTERNAL | | | | | | LAB | | + +-------+ + + + | % Segmented | 53 | 42 - 76 % | EXTERNAL | | | | | | LAB | | | Neutrophils | | | | | + +-------+ + + + | % Bands | 1 | <=7 % | EXTERNAL | | | | | | LAB | | + +-------+ + + + | % | 1 | % | EXTERNAL | | | Metamyelocy | | | LAB | | | paradise | | | | | + +-------+ + + + | % | 1 | % | EXTERNAL | | | Myelocytes | | | LAB | | + +-------+ + + + | LYMPH % | 26 | 20 - 40 % | EXTERNAL | | | | | | LAB | | + +-------+ + + + | Atypical | 5 | <=5 % | EXTERNAL | | | Lymphocytes | | | LAB | | | Manual | | | | | + +-------+ + + + | % Monocytes | 9 | 3 - 13 % | EXTERNAL | | | | | | LAB | | + +-------+ + + + | % | 2 | <=7 % | EXTERNAL | | | Eosinophils | | | LAB | | + +-------+ + + + | % Basophils | 2 | <=2 % | EXTERNAL | | | | | | LAB | | + +-------+ + + + | Absolute | 3.02 | 2.80 - 7.70 | EXTERNAL | | | Neutrophils | | 1000/mm3 | LAB | | + +-------+ + + + | Absolute | 1.98 | 1.20 - 3.30 | EXTERNAL | | | Lymphocytes | | 1000/mm3 | LAB | | + +-------+ + + + | Absolute | 0.58 | 0.00 - 0.80 | EXTERNAL | | | Monocytes | | 1000/mm3 | LAB | | + +-------+ + + + | Absolute | 0.13 | 0.00 - 0.70 | EXTERNAL | | | Eosinophils | | 1000/mm3 | LAB | | + +-------+ + + + | Absolute | 0.04 | 0.00 - 0.20 | EXTERNAL | [...] | | + +---------+ + + TSH (07/21/2014 9:48 PM PDT) + +-------+ + + + | Component | Value | Ref Range | Performed | Pathologist | | | | | At | Signature | + +-------+ + + + | TSH | 2.33 | 0.40 - 4.68 | EXTERNAL | | | | | mIU/L | LAB | | + +-------+ + + + + + | Specimen | + + | | + + + +---------+ + + | Performing | Address | City/State/Zipcode | Phone Number | | Organization | | | | + +---------+ + + | EXTERNAL LAB | | | | + +---------+ + + T4, Free (07/21/2014 9:48 PM PDT) + +-------+ + + + | Component | Value | Ref Range | Performed | Pathologist | | | | | At | Signature | + +-------+ + + + | FT4 | 1.04 | 0.67 - 1.51 | EXTERNAL | | | | | ng/dL | LAB | | + +-------+ + + + + + | Specimen | + + | | + + + +---------+ + + | Performing | Address | City/State/Zipcode | Phone Number | | Organization | | | | + +---------+ + + | EXTERNAL LAB | | | | + +---------+ + + Comprehensive Metabolic Panel (07/21/2014 9:48 PM PDT) + +-------+ + + + | Component | Value | Ref Range | Performed | Pathologist | | | | | At | Signature | + +-------+ + + + | Sodium | 135 | 132 - 143 | EXTERNAL | | | | | mmol/L | LAB | | + +-------+ + + + | Potassium | 3.9 | 3.3 - 4.9 | EXTERNAL | | | | | mmol/L | LAB | | + +-------+ + + + | Cl | 103 | 95 - 108 mmol/L | EXTERNAL | | | | | | LAB | | + +-------+ + + + | CO2 | 25 | 23 - 34 mmol/L | EXTERNAL | | | | | | LAB | | + +-------+ + + + | Anion Gap | 7 | 7 - 16 | EXTERNAL | | | | | | LAB | | + +-------+ + + + | Calcium | 9.3 | 8.3 - 10.0 | EXTERNAL | | | | | mg/dL | LAB | | + +-------+ + + + | Glucose | 98 | 70 - 110 mg/dL | EXTERNAL | | | | | | LAB | | + +-------+ + + + | BUN, Bld | 19 | 5 - 26 mg/dL | EXTERNAL | | | | | | LAB | | + +-------+ + + + | Creatinine | 1.2 | 0.7 - 1.4 mg/dL | EXTERNAL | | | | | | LAB | | + +-------+ + + + | BUN/Creatin | 15.8 | 7.0 - 24.0 | EXTERNAL | | | ine Ratio | | RATIO | LAB | | + +-------+ + + + | GFR | 60 | >=60 | EXTERNAL | | | ESTIMATE | | mL/min/1.73m2 | LAB | | | (REF) | | | | | + +-------+ + + + | Bilirubin, | 0.3 | <=1.2 mg/dL | EXTERNAL | | | Total | | | LAB | | + +-------+ + + + | Protein, | 8.1 | 6.6 - 8.5 g/dL | EXTERNAL | | | Total | | | LAB | | + +-------+ + + + | Albumin | 4 | 3.0 - 4.5 g/dL | EXTERNAL | | | | | | LAB | | + +-------+ + + + | Alkaline | 98 | 33 - 151 U/L | EXTERNAL | | | Phosphatase | | | LAB | | + +-------+ + + + | ALT, | 33 | 16 - 63 U/L | EXTERNAL | | | External | | | LAB | | + +-------+ + + + | AST, | 19 | <=38 U/L | EXTERNAL | | [...] | | + +---------+ + + Ethanol (07/21/2014 9:48 PM PDT) + +-------+ + + + [...]
--- OUTSIDE RECORDS SUMMARY | ~2020-05-28 | XMS | Encounter Summary ---
Demographics + + + | Address | [address] | | | [place] [address] | + + + | Home Phone | | + + + | Preferred Language | Unknown | + + + | Marital Status | | + + + | Yazidism Affiliation | 1013 | + + + | Race | Unknown | + + + | Ethnic Group | Unknown | + + + Author + + + | Author | [facility] | | | and [place] | + + + | Organization | [facility] | | [...] | | | | | [place] [address] | | + + + + + | James Langston | ECON | Unknown | | + + + + + Care Team Providers + +------+ + | Care Classroom Technology Coach Name | Role | Phone | + +------+ + | Ferdinand Arguello MD | PCP | | + +------+ + Encounter Details +--------+ + + + + | Date | Type | Department | Care Team | Description | +--------+ + + + + | 11/23/ | Hospital | [facility] | Ferdinand Barry | | | 2016 | Encounter | [facility] | [address] | | | | | [address] | [address] | | | | | [address] [place], [place] | [place] [address] | | | | | [address] | [phone] | | | | | [phone] | | | +--------+ + + + [...] | | | | | | [address] [facility], | | | | | | [place] [address] | | | | | | [phone] | | | | | | | | +--------+---------+ + + + documented as of this encounter Visit Diagnoses Not on filedocumented in this encounter"
--- OUTSIDE RECORDS SUMMARY | ~2020-05-28 | XMS | Encounter Summary ---
Demographics + + + | Address | [address] | | | [place] [address] | + + + | Home Phone | | + + + | Preferred Language | Unknown | + + + | Marital Status | | + + + | Faith Affiliation | 1013 | + + + | Race | Unknown | + + + | Ethnic Group | Unknown | + + + Author + + + | Author | [facility] | | | and [place] | + + + | Organization | [facility] | | [...] | | | | | [place] [address] | | + + + + + | James Langston | ECON | Unknown | | + + + + + Care Team Providers + +------+ + | Care Photography And Prints Curator Name | Role | Phone | + +------+ + | Ferdinand Arguello MD | PCP | | + +------+ + Reason for Visit +---------+ + | Reason | Comments | +---------+ + | Otalgia | | +---------+ + Encounter Details +--------+ + + + + | Date | Type | Department | Care Team | Description | +--------+ + + + + | 11/05/ | Emergency | [facility] | Christopher West, | Acute swimmer's ear | | 2019 | | HOSPITAL EMERGENCY | 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 [address] | of left side | | | | CENTER [address] | [place] | (Primary Dx) | | | | [place] | [address] | | | | | [address] | | | | | | [phone] | | | +--------+ + + + [...] + + + | Blood Pressure | 137/59 | 11/05/2018 12:14 PM | | | | | PST | | + + + + + | Pulse | 77 | 11/05/2018 12:14 PM | | | | | PST | | + + + + + | Temperature | 36.5 C (97.7 F) | 11/05/2018 12:14 PM | | | | | PST | | + + + + + | Respiratory Rate | 18 | 11/05/2018 12:14 PM | | | | | PST | | + + + + + | Oxygen Saturation | 100% | 11/05/2018 12:14 PM | RA | | | | PST | | + + + + + | Inhaled Oxygen | - | - | | | Concentration | | | | + + + + + | Weight | 72.6 kg (160 lb) | 11/05/2018 12:14 PM | | | | | PST | | + + + + + | Height | 170.2 cm (5' 7") | 11/05/2018 12:14 PM | | | | | PST | | + + + + + | Body Mass Index | 25.06 | 11/05/2018 12:14 PM | | | | | PST | | + + + + + documented in this encounter Discharge Instructions Instructions Christopher West NP - 11/05/2018Prescriptions for Cortisporin otic solution. Warm compresses to the affected ear Follow-up with your primary care provider if not improving over next 3-5 days. AttachmentsThe following attachments cannot be sent through Care Everywhere.Ear, Anatomy of the (Setswana)documented in this encounter Medications at Time of [...] + +---------+ + + | citalopram | Take 20 mg by mouth | | 0 | | | | (CELEXA) 10 mg | Daily. | | | | 9 | | tablet | | | | | | + + + +---------+ + + | | Place 4 drops in | 10 mL | 0 | 11/05/19 | | | hzkhyran-ylcieuule-u | ear(s) 4 times daily | | | 19 | 9 | | ydrocortisone | for 7 days. | | | | | | (CORTISPORIN) otic | | | | | | | solution | | | | | | + + + +---------+ + + documented as of this encounter ED Notes Christopher West NP - 11/05/2018 12:26 PM PSTFormatting of this note might be different fr om the original. [facility] Emergency Department Provider Note Name: Haroldo Langston Date: 11/05/2018 : 1985 Room Number: ED10 PCP: Ferdinand Arguello MD ED Course and Medical Decision Making: Haroldo Langston presented to the ED for evaluation. Patient was seen and evaluated in room ED10. Clinical considerations includes but is not limited to OM, OE,. Final Clinical Impression(s): 1. Acute swimmer's ear of left side Disposition: Discharged home Condition: Stable Plan: Prescriptions for cortisporin otic solution. Warm compresses to the affected ear Follow-up with your primary care provider if not improving over next 3-5 days. Rx and Follow up: ED Prescriptions Sig onkvxpzx-afmnemter-naesrrwmfbogtm (CORTISPORIN) otic solution Place 4 drops in ear(s) 4 ti mes daily for 7 days. Follow-up Information Go to Ferdinand Arguello MD. Specialty: Family Medicine Why: As needed if no improvement or symptoms worsen. Contact information: [address] [facility] [address] Extended ED Note CC: Chief Complaint Patient presents with Otalgia Method of Arrival: walk-in Treatment QUALITY ASSURANCE MONITOR CHASSIS (EMS): NA Treatment QUALITY ASSURANCE MONITOR CHASSIS (Patient/Family): NA HPI: History obtained from: Patient Haroldo Langston is a 33 y.o. male who presents with left ear Intermittently over the l ast week. Patient states that he's been using dqba-mhc-zoswyov eardrops to help with the pa in. Patient states he saw drainage in the ear 2 days ago that is currently resolved. He al so notes swelling to the ear canal. He also notes nausea chills no cough and head congestio n that is resolved. Patient states the pain is sharp and comes and goes radiates to his jaw intermittently. He states the pain to get better if he lays on his opposite side with that affected ear for about 5-10 minutes the pain gets worse if he is in the shower or the ear i s exposed to cold Review of Systems Review of Systems Constitutional: Positive for chills. Negative for fever. HENT: Positive for ear discharge, ear pain and hearing loss. Respiratory: Negative for cough. Gastrointestinal: Positive for nausea. Physical Exam Vital Signs: Vitals Current 24 Hour Min / Max Temp 36.5 C (97.7 F) Temp Min: 36.5 C (97.7 F) Max: 36.5 C (97.7 F) BP 137/59 BP Min: 137/59 Max: 137/59 HR 77 Pulse Min: 77 Max: 77 Sats 100 % (RA) SpO2 Min: 100 % Max: 100 % Physical Exam Constitutional: He is oriented to person, place, and time. He appears well-developed and we ll-nourished. No distress. HENT: Head: Normocephalic and atraumatic. Right Ear: Hearing, tympanic membrane, external ear and ear canal normal. Left Ear: There is swelling and tenderness. Decreased hearing is noted. Nose: Nose normal. Mouth/Throat: Uvula is midline, oropharynx is clear and moist and mucous membranes are norm al. Left ear canal is swollen with purulent drainage noted. Eyes: Conjunctivae are normal. Right eye exhibits no discharge. Left eye exhibits no discha rge. Neck: Neck supple. Cardiovascular: Normal rate, regular rhythm and normal heart sounds. Exam reveals no oneal p and no friction rub. No murmur heard. Pulmonary/Chest: Effort normal and breath sounds normal. No respiratory distress. He exhibi ts no tenderness. Abdominal: Soft. Bowel sounds are normal. Musculoskeletal: He exhibits no edema. Lymphadenopathy: He has no cervical adenopathy. Neurological: He is alert and oriented to person, place, and time. Skin: Skin is warm and dry. He is not diaphoretic. Psychiatric: He has a normal mood and affect. Nursing note and vitals reviewed. Past Medical, Surgical, Social, and Family History Past Medical History: Diagnosis Date Anxiety Bipolar 1 disorder (HCC) Depression Hematochezia Past Surgical History: Procedure Laterality Date APPENDECTOMY COLONOSCOPY 01/19/15 FINDINGS: Normal exam [facility] Dr. Byers EYE SURGERY age 4 "crossed eye" surgery Social History Substance Use Topics Smoking status: Never Smoker Smokeless tobacco: Never Used Alcohol use Yes Comment: occasionally Previous Medications CITALOPRAM (CELEXA) 10 MG TABLET Take 20 mg by mouth Daily. CLONIDINE (CATAPRES) 0.1 MG TABLET Take 0.1 mg by mouth 2 times daily. LAMOTRIGINE (LAMICTAL) 200 MG TABLET Take 400 mg by mouth Daily. TRAZODONE (DESYREL) 100 MG TABLET Take 100 mg by mouth nightly. Parts of this note may have been created using [employer] which is a voice recognition software . It inherently makes mistakes with substitution of words that sound similar. Christopher West NP 11/05/18 1230 uEunice romero RN - 0 11/05/2018 12:12 PM PSTPatient in with c/o left ear pain x 1 week. Unsure of fever.Electronic ally signed by Eunice Steinberg RN at 11/05/2018 12:28 PM PSTdocumented in this encounter Plan of Treatment +--------+---------+ + + + | Date | Type | Specialty | Care Team | Description | +--------+---------+ + + + | 06/04/ | Office | Primary Care | Rand Braxton | | | 2019 | Visit | | [address] | | | | | | [address] [facility], | | | | | | [place] [address] | | | | | | [phone] | | | | | | | | +--------+---------+ + + + documented as of this encounter Visit Diagnoses + + | Diagnosis | + + | Acute swimmer's ear of left side - Primary | + + documented in this encounter
--- OUTSIDE RECORDS SUMMARY | ~2020-05-28 | XMS | Encounter Summary ---
Demographics + + + | Address | [address] | | | [place] [address] | + + + | Home Phone | | + + + | Preferred Language | Unknown | + + + | Marital Status | | + + + | Jew Affiliation | 1013 | + + + | Race | Unknown | + + + | Ethnic Group | Unknown | + + + Author + + + | Author | [facility] | | | and [place] | + + + | Organization | [facility] | | | and [place] | + + + | Address | Unknown | + + + | Phone | Unavailable | + + + Support + + + + + | Name | Relationship | Address | Phone | + + + + + | Maria G Langston | ECON | [address] | | | | | [place] [address] | | + + + + + | James Langston | ECON | Unknown | | + + + + + Care Team Providers + +------+ + | Care Garage Laborer Name | Role | Phone | + +------+ + | Ferdinand Arguello MD | PCP | | + +------+ + Reason for Visit +---------+--------+ + | Reason | Onset | Comments | | | Date | | +---------+--------+ + | Results | 05/21/ | | | | 2020 | | +---------+--------+ + Encounter Details +--------+ + + + + | Date | Type | Department | Care Team | Description | +--------+ + + + + | 05/21/ | Telephone | [facility] | Ernestina Nayak | Results | | 2019 | | [facility] | DO [address] | | | | | [facility] [address] | [address] | | | | | [address] [facility], | [place] [address] | | | | | [place] [address] | [phone] | | | | | [phone] | | | +--------+ + + + [...] + + documented as of this encounter Miscellaneous Notes Telephone Encounter - Yin Bob RN - 05/21/2020 12:21 PM PDTMade contact with anju blank regarding lab results. Pt was informed of most recent result notes. Pt acknowledged. Yin Bob RN elephone Encounter - Yin Bob RN - 05/21/2020 12:20 PM PDT----- Message from Ernestina Nayak DO sent at 05/21/2020 12:00 PM PDT ----- Please notify patient that COVID-19 test is negative. documented in this encounter Plan of Treatment +--------+---------+ + + + | Date | Type | Specialty | Care Team | Description | +--------+---------+ + + + | 06/04/ | Office | Primary Care | Rand Braxton | | 2019 | Visit | | [address] | | | | | | [address] [facility], | | | | | | [place] [address] | | | | | | [phone] | | | | | | | | +--------+---------+ + + + documented as of this encounter Visit Diagnoses Not on filedocumented in this encounter Additional Health Concerns + + + + + | Infection | Onset Date | Last Indicated | Resolved Time | + + + + + | Rule out COVID-19 | 05/21/2020 | 05/21/2020 | 05/21/2020 11:39 AM | | | | | PDT | + + + + + documented as of this encounter"
--- OUTSIDE RECORDS SUMMARY | ~2020-05-28 | XMS | Encounter Summary ---
Demographics + + + | Address | [address] | | | [place] [address] | + + + | Home Phone | | + + + | Preferred Language | Unknown | + + + | Marital Status | | + + + | Sikhism Affiliation | 1013 | + + + | Race | Unknown | + + + | Ethnic Group | Unknown | + + + Author + + + | Author | [facility] | | | and [place] | + + + | Organization | [facility] | | | [...] [place] | | | | | [place] [address] | | + + + + + | James Langston | ECON | Unknown | | + + + + + Care Team Providers + +------+ + | Care Procurement Manager Name | Role | Phone | + +------+ + PCP | Unavailable | + +------+ + Encounter Details +--------+ + + + + | Date | Type | Department | Care Team | Description | +--------+ + + + + | 01/19/ | Hospital | [facility] | Adonay Turcios | | | 2014 | Encounter | HOSPITAL MED SURG | DO [address] | | | | | [address] [place] | [address] [place] [address] | | | | | [place], [place] | [facility], [place] | | | | | [address] | [address] | | | | | [phone] | [phone] | | | | | | | | +--------+ + + + [...] documented as of this encounter Miscellaneous Notes Op Note - Adonay Turcios DO - 01/19/2015 10:03 AM PDTPROCEDURE REPORT DATE OF PROCEDURE: 01/19/2015. PREPROCEDURE DIAGNOSES: 1. Diarrhea. 2. Hematochezia. POSTPROCEDURE DIAGNOSIS: Normal colonoscopy. PROCEDURE PERFORMED: Complete colonoscopy with cold forceps biopsy. SURGEON: Adonay Turcios DO. ANESTHESIA: IV sedation with FENTANYL and VERSED. COMPLICATIONS: None. SPECIMENS: 1. Random biopsies, right colon. 2. Random biopsies, transverse colon. 3. Random biopsies, left colon. INDICATIONS FOR PROCEDURE: Mr. Langston is a 29-year-old male who had an episode several weeks ago that lasted approxima tely 3 or 4 days. His symptoms consisted of profuse water diarrhea followed by bright-red bl ood and mucus per rectum. It was self-limited and at this time he is asymptomatic. We went over risks, benefits and potential complications of proceeding with a colonoscopy and he gave consent to do so. DESCRIPTION OF PROCEDURE: With consent obtained the patient was taken to the endoscopy suite and placed in the left l ateral decubitus position. A timeout was taken and then he was adequately sedated with IV F ENTANYL and VERSED. I began with a digital rectal exam. He had no external hemorrhoids, normal tone, no masses and no gross blood. His prostate felt normal. At this point I advanced a flexible colonoscope through the patient's anus, rectum, sigmoid colon, descending, transverse, ascending colon and into the cecum. The identity of the cecum was verified by visualization of the appendiceal orifice and the ileo cecal valve. I did intubate the ileocecal valve and inspected the terminal ileum for a lengt h of approximately 20 cm. The ileal mucosa was normal. The scope was then backed into the cecum. Prep quality was adequate. I then began to slowly withdraw the scope through the colon as I meticulously inspected the mucosa. I did not note any abnormali ties throughout the entire exam. I did take three cold forceps biopsies in each of right, transverse and left colon at random. Once in the rectum the scope was ret roflexed and no abnormalities were noted on the retroflex view. I then anteverted the scope, aspirated air and withdrew it from the patient's anus. He tolerated the procedure well and there were no immediate complications. GROSS FINDINGS: Normal exam. PLAN AND RECOMMENDATIONS: I will follow up on the biopsy results and make additional recommendations when these are a vailable. cc: Ferdinand Arguello MD [facility] Signed and Approved by: ADONAY TURCIOS DO 01/20/2015 08:36:00 documented in this encounter Plan of Treatment [...] | | | | | | [place] [address] | | | | | | [phone] | | | | | | | | +--------+---------+ + + + documented as of this encounter Visit Diagnoses Not on filedocumented in this encounter"
--- OUTSIDE RECORDS SUMMARY | ~2020-05-28 | XMS | Encounter Summary ---
Demographics + + + | Address | [address] | | | [place] [address] | + + + | Home Phone | | + + + | Preferred Language | Unknown | + + + | Marital Status | | + + + | Samaritan Affiliation | 1013 | + + + | Race | Unknown | + + + | Ethnic Group | Unknown | + + + Author + + + | Author | [facility] | | | and [place] | + + + | Organization | [facility] | | | and [...] | | | | | [place] [address] | | + + + + + | James Langston | ECON | Unknown | | + + + + + Care Team Providers + +------+ + | Care Stretcher Leveler Operator Name | Role | Phone | + +------+ + | Ferdinand Arguello MD | PCP | | + +------+ + Encounter Details +--------+ + + + + | Date | Type | Department | Care Team | Description | +--------+ + + + + | 10/19/ | Hospital | [facility] | Lupe Yun | | | 2015 | Encounter | HOSPITAL GROUND | MD [address] | | | | | [address] | [address] [place] | [place] [address] | | | | | [place] | [phone] | | | | | [address] | | | | | | [phone] | | | +--------+ + + + [...] | | | | [address] [facility], | | | | | | [place] [address] | | | | | | [phone] | | | | | | | | +--------+---------+ + + + documented as of this encounter Visit Diagnoses Not on filedocumented in this encounter"
--- OUTSIDE RECORDS SUMMARY | ~2020-05-28 | XMS | Encounter Summary ---
Demographics + + + | Address | [address] | | | [place] [address] | + + + | Home Phone | | + + + | Preferred Language | Unknown | + + + | Marital Status | | + + + | Roman Catholic Affiliation | 1013 | + + + | Race | Unknown | + + + | Ethnic Group | Unknown | + + + Author + + + | Author | [facility] | | | and [place] | + + + | Organization | [facility] | | [...] [place] | | | | | [place] [address] | | + + + + + | James Langston | ECON | Unknown | | + + + + + Care Team Providers + +------+ + | Care Spray Applicator Name | Role | Phone | + +------+ + PCP | Unavailable | + +------+ + Encounter Details +--------+ + + + + | Date | Type | Department | Care Team | Description | +--------+ + + + + | 11/17/ | Hospital | [facility] | ElenitaJean-Paul | | | 2011 | Encounter | HOSPITAL EMERGENCY | MD [address] | | | | | CENTER [address] | [facility] | | | | | [address] [place], [place] | [place] [address] | | | | | [address] | [phone] | | | | | [phone] | | | +--------+ + + + [...] | | | | | | [address] [facility], | | | | | | [place] [address] | | | | | | [phone] | | | | | | | | +--------+---------+ + + + documented as of this encounter Visit Diagnoses Not on filedocumented in this encounter"
--- OUTSIDE RECORDS SUMMARY | ~2020-05-28 | XMS | Encounter Summary ---
Demographics + + + | Address | [address] | | | [place] [address] | + + + | Home Phone | | + + + | Preferred Language | Unknown | + + + | Marital Status | | + + + | Islam Affiliation | 1013 | + + + [...] [place] | | | | | [place] [address] | | + + + + + | James Langston | ECON | Unknown | | + + + + + Care Team Providers + +------+ + | Care Search Specialist Name | Role | Phone | + +------+ + PCP | Unavailable | + +------+ + Encounter Details +--------+ + + + + | Date | Type | Department | Care Team | Description | +--------+ + + + + | 07/11/ | Hospital | [facility] | [facility] | | | 2012 | Encounter | HOSPITAL EMERGENCY | MD [address] | | | | | [address] | [place] | | | | | [place] | [address] | | | | | [address] | [phone] | | | | | [phone] | | | +--------+ + + + [...] 06/04/ | Office | Primary Care | Rnad Braxton | | | 2019 | Visit | | [address] | | | | | | [facility] [facility], | | | | | | [place] [address] | | | | | | [phone] | | | | | | | | +--------+---------+ + + + documented as of this encounter Visit Diagnoses Not on filedocumented in this encounter"
--- OUTSIDE RECORDS SUMMARY | ~2020-05-28 | XMS | Encounter Summary ---
Demographics + + + | Address | [address] | | | [place] [address] | + + + | Home Phone | | + + + | Preferred Language | Unknown | + + + | Marital Status | | + + + | Mormonism Affiliation | 1013 | + + + | Race | Unknown | + + + | Ethnic Group | Unknown | + + + Author + + + | Author | [facility] | | | and [place] | + + + | Organization | [facility] | | [...] [place] | | | | | [place] [address] | | + + + + + | James Langston | ECON | Unknown | | + + + + + Care Team Providers + +------+ + | Care Director Sales And Trade Marketing Name | Role | Phone | + +------+ + PCP | Unavailable | + +------+ + Encounter Details +--------+ + + + + | Date | Type | Department | Care Team | Description | +--------+ + + + + | 02/19/ | Hospital | [facility] | Jim Guy | | | 2009 | Encounter | HOSPITAL MED SURG | [address] [place] [address] | | | | | [address] | [place] | | | | | [place], [place] | [address] | | | | | [address] | | | | | | [phone] | | | +--------+ + + + [...] + + documented as of this encounter H&P Notes Jim Guy MD - 02/19/2010 10:33 AM PDTHISTORY AND PHYSICAL Dictating Practitioner: Jim Guy MD DATE OF SERVICE: 02/19/2010 CHIEF COMPLAINT: Sore throat, nausea, malaise. HISTORY OF PRESENT ILLNESS: Mr. Langston is a 24-year-old previously healthy gentleman who developed upper respiratory tr act infection-type symptoms as well as a sore throat last Sunday. He reported waxing and wa unruly fevers to as high as 102 degrees. His throat was intermittently markedly sore. He also developed a nonproductive cough which was hacking in nature. It wa s triggered especially by things like tobacco smoke. The patient slowly improved over the next three days and this last tried to go [employer] to work. By the time he finished work he was utterly exhausted and complained of severe myalgias. His sore throat worsened. He then developed itching and some swelling with a clear discharge from his right eye. The patient is . He a nd his have two children of school age. They have been sick with coughs and nausea and vomiting. When asked, the patient does report increased sinus congestion and pressure of late. He be lieves he has had a postnasal drip especially when laying his head back. The patient denies any recent rashes. No specific joint pain or edema. No dysuria, pyuria or hematuria. He did have some diarrhea early on in the illness, but it has resolved. No vomiting though he has had persistent nausea. Markedly decreased p.o. intake over the last five days. The patient estimates that he has lost 10 pounds. No ches t pain, palpitations, shortness of breath. This morning when he awoke his lungs did feel ti ght and he had some dyspnea with exertion, however. PAST MEDICAL HISTORY: 1. Recurrent otitis media as a child. 2. Status post appendectomy last year. 3. 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 MEDICATIONS: MULTIVITAMIN one p.o. daily. ALLERGIES: NO KNOWN DRUG ALLERGIES. REVIEW OF SYSTEMS: Complete review of systems was obtained and was negative except as outlined above. FAMILY HISTORY: Noncontributory. SOCIAL HISTORY: The patient does not smoke and never has. Alcohol use is rare. No recreational drug use. 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 He has two children. PHYSICAL EXAMINATION: GENERAL: This is an alert oriented male. He is acutely ill-appearing. VITAL SIGNS: Temperature 98.3. Heart rate 97. Blood pressure 112/71. Respiratory rate 2 2. O2 sat 99% on room air. HEENT: Normocephalic, atraumatic. The right eye shows mild erythematous blush and some ed yuliana in the periorbital area. There is yellow crusting around the eyelid. The conjunctiva i s erythematous and injected. The left eye is normal. Oropharynx shows dry mucous membranes with chapping of the lips. Tenderness to percussion over the frontal and maxillary sinuses. NECK: No JVD at 30 degrees. No thyromegaly. CARDIOVASCULAR: Hyperdynamic. Tachycardic with a regular rhythm. No murmur appreciated. LUNGS: Clear to auscultation and percussion bilaterally. ABDOMEN: Bowel sounds were auscultated. Abdomen was soft, nondistended, nontender. No hep atosplenomegaly was appreciated. No masses were noted. EXTREMITIES: No cyanosis, clubbing or edema. Peripheral pulses were palpated bilaterally at dorsalis pedis. SKIN: There is a longstanding rash over the buttocks bilaterally. No other rashes or lesi ons were appreciated. PSYCHIATRIC: Normal mood, engaging affect. LABORATORY DATA: Urinalysis negative. Influenza A and influenza B negative. Right eye culture: No PMNs or bacteria noted. Erythrocyte sedimentation rate 28. Strep A negative. Monospot negative. Complete metabolic panel shows sodium 133, potassium 3.8, chloride 100, CO2 25, BUN 13, creatinine 1.3, glucose 109, calcium 9.1, total protein 8.5, albumin 3.7, total bilirubin 0.8, alkaline phosphatase 98, AST 14, ALT 33. CBC showed a white blood cell count of 8.3, hemoglobin 15.8, hematocrit 44.8, platelets 314,000. Differential showed 87 neutrophils, 6 lymphocytes, 7 monocytes. STUDIES: Chest x-ray PA and lateral was reviewed by myself. It showed normal cardiac silhouette. N ormal pulmonary vasculature. No pleural effusions. No obvious infiltrate. Lateral film wa s clear. ASSESSMENT AND PLAN: Mr. Langston is a 24-year-old gentleman who presents to the emergency department with a one-w zuni history of fever, chills, fatigue, nausea, weight loss. 1. Infectious disease. History and evaluation are consistent with an upper respiratory tra ct infection most likely a bacterial sinusitis with postnasal drip and associated pharyngiti s with likely early acute bronchitis. The patient will be admitted to the wards for observation. Will start on ZITHROMAX. Will also encourage sinus drainage with CLARITIN-D and saline nasal spray. Will use TYLENOL and IBUPROFEN as needed for symptomatic treatment. 2. Fluids, electrolytes and nutrition. Dehydration. Will hydrate. Follow. 3. Malnutrition. Mild. Will treat with antiemetics. Encourage p.o. intake. 4. HEENT. Viral conjunctivitis. Recommend saline eye drops and warm compresses to the rig ht eye. I did work counselor the patient on the fact that this is highly contagious. I recommende d that he not rub his eye and that he wash his hands frequently. The patient and his exhibit good understanding and agree with the plan. 5. Disposition. The patient will likely require a 12-36 hour stay. 6. CODE STATUS: FULL CODE. [facility] Signed and Approved by: JIM GUY MD 02/20/2010 16:32:00 documented in this encounter Plan of Treatment [...] | | | | | | [place] [address] | | | | | | [phone] | | | | | | | | +--------+---------+ + + + documented as of this encounter Visit Diagnoses Not on filedocumented in this encounter"
--- OUTSIDE RECORDS SUMMARY | ~2020-05-28 | XMS | Encounter Summary ---
Demographics + + + | Address | [address] | | | [place] [address] | + + + | Home Phone | | + + + | Preferred Language | Unknown | + + + | Marital Status | | + + + | Anabaptism Affiliation | 1013 | + + + | Race | Unknown | + + + | Ethnic Group | Unknown | + + + Author + + + | Author | [facility] | | | and [place] | + + + | Organization | [facility] | | | [...] | | | | | [place] [address] | | + + + + + | James Langston | ECON | Unknown | | + + + + + Care Team Providers + +------+ + | Care Divine Healer Name | Role | Phone | + +------+ + | Ferdinand Arguello MD | PCP | | + +------+ + Encounter Details +--------+ + + + + | Date | Type | Department | Care Team | Description | +--------+ + + + + | 02/22/ | Abstract | [facility] | Daniel Albrecht MD | | | 2015 | | GASTROENTEROLOGY | [address], [place] | | | | | [address] [place] | [address] [place], [place] | | | | | [address] [place], [place] | [address] | | | | | [address] | | | | | | [phone] | | | +--------+ + + + [...] | | | | | | [place] [address] | | | | | | [phone] | | | | | | | | +--------+---------+ + + + documented as of this encounter Procedures + +--------+ + + + | Procedure Name | Priori | Date/Time | Associated Diagnosis | Comments | | | ty | | | | + +--------+ + + + | EXTERNAL: | Routin | 01/19/2015 | | Results for this | | COLONOSCOPY | e | | | procedure are in the | | | | | | results section. | + +--------+ + + + documented in this encounter Results EXTERNAL: COLONOSCOPY (01/19/2015) + + + + + + | Component | Value | Ref Range | Performed | Pathologist | | | | | At | Signature | + + + + + + | Colonoscopy | FINDINGS: Normal exam | | | | | | [facility] | | | | | Impression, | | | | | | External | | | | | + + + + + + documented in this encounter Visit Diagnoses Not on filedocumented in this encounter"
--- OUTSIDE RECORDS SUMMARY | ~2020-05-28 | XMS | Encounter Summary ---
Demographics + + + | Address | [address] | | | [place] [address] | + + + | Home Phone | | + + + | Preferred Language | Unknown | + + + | Marital Status | | + + + | Hinduism Affiliation | 1013 | + + + | Race | Unknown | + + + | Ethnic Group | Unknown | + + + Author + + + | Author | [facility] | | | and [place] | + + + | Organization | [facility] | | | [...] [place] | | | | | [place] [address] | | + + + + + | James Langston | ECON | Unknown | | + + + + + Care Team Providers + +------+ + | Care Television Production Assistant Name | Role | Phone | + +------+ + PCP | Unavailable | + +------+ + Encounter Details +--------+ + + + + | Date | Type | Department | Care Team | Description | +--------+ + + + + | 02/23/ | Hospital | [facility] | Ethel Hernandes | | | 2009 | Encounter | [facility] | [address] | | | | | [address] | [facility], | | | | | [facility], | [place] [address] | | | | | [place] [address] | [phone] | | | | | [phone] | | | +--------+ + + + [...] | | | | | | [facility], | | | | | | [place] [address] | | | | | | [phone] | | | | | | | | +--------+---------+ + + + documented as of this encounter Visit Diagnoses Not on filedocumented in this encounter"
--- OUTSIDE RECORDS SUMMARY | ~2020-05-28 | XMS | Encounter Summary ---
Demographics + + + | Address | [address] | | | [place] [address] | + + + | Home Phone | | + + + | Preferred Language | Unknown | + + + | Marital Status | | + + + | Muslim Affiliation | 1013 | + + + | Race | Unknown | + + + | Ethnic Group | Unknown | + + + Author + + + | Author | [facility] | | | and [place] | + + + | Organization | [facility] | | | and [...] [place] | | | | | [place] [address] | | + + + + + | James Langston | ECON | Unknown | | + + + + + Care Team Providers + +------+ + | Care Career Technical Supervisor Name | Role | Phone | + +------+ + PCP | Unavailable | + +------+ + Encounter Details +--------+ + + + + | Date | Type | Department | Care Team | Description | +--------+ + + + + | 11/27/ | Hospital | [facility] | Elenita[facility]-Paul | | | 2014 | Encounter | HOSPITAL EMERGENCY | [address] | | | | | C[address] | [facility] | | | | | [address] [place], [place] | [place] [address] | | | | | [address] | [phone] | | | | | [phone] | | | +--------+ + + + [...] | | | | | | [address] [facility], | | | | | | [place] [address] | | | | | | [phone] | | | | | | | | +--------+---------+ + + + documented as of this encounter Visit Diagnoses Not on filedocumented in this encounter"
--- OUTSIDE RECORDS SUMMARY | ~2020-05-28 | XMS | Encounter Summary ---
Demographics + + + | Address | [address] | | | [place] [address] | + + + | Home Phone | | + + + | Preferred Language | Unknown | + + + | Marital Status | | + + + | Hindu Affiliation | 1013 | + + + [...] | | | | | [place] [address] | | + + + + + | James Langston | ECON | Unknown | | + + + + + Care Team Providers + +------+ + | Care Boiler Mechanic Name | Role | Phone | + +------+ + | Ferdinand Arguello MD | PCP | | + +------+ + Reason for Visit + +--------+ + | Reason | Onset | Comments | | | Date | | + +--------+ + | Advice Only | 05/28/ | | | | 2019 | | + +--------+ + Encounter Details +--------+ + + + + | Date | Type | Department | Care Team | Description | +--------+ + + + + | 05/28/ | Telephone | [facility] | Ferdinand Arguello | Advice Only | | 2019 | | [facility] | [address] | | | | | [address] | [facility], [place] | | | | | [facility] [facility], | [address] | | | | | [place] [address] | [phone] | | | | | [phone] | | | +--------+ + + + [...] Telephone Encounter - Yin Bob RN - 05/28/2020 8:43 AM PDTPatient's Heat her called and wanted to know if her could be seen in the ER. She states he has incr eased shortness of breath and disorientation. He has been isolating for presumptive COVID an d appears to have a worsening of his symptoms. I advised that her would need to be e valuated in the ER. Patient's said "OK fine whatever" and disconnected the phone call. Yin Bob RN documented in th is encounter Plan of Treatment +--------+---------+ + + + | Date | Type | Specialty | Care Team | Description | +--------+---------+ + + + | 06/04/ | Office | Primary Care | Rand Braxton | | 2019 | Visit | | [address] | | | | | | [facility], | | | | | | [place] [address] | | | | | | [phone] | | | | | | | | +--------+---------+ + + + documented as of this encounter Visit Diagnoses Not on filedocumented in this encounter
--- OUTSIDE RECORDS SUMMARY | ~2020-05-28 | XMS | Encounter Summary ---
Demographics + + + | Address | [address] | | | [place] [address] | + + + | Home Phone | | + + + | Preferred Language | Unknown | + + + | Marital Status | | + + + | Evangelical Affiliation | 1013 | + + + [...] [place] | | | | | [place] [address] | | + + + + + | James Langston | ECON | Unknown | | + + + + + Care Team Providers + +------+ + | Care Halal Butcher Name | Role | Phone | + +------+ + PCP | Unavailable | + +------+ + Encounter Details +--------+ + + + + | Date | Type | Department | Care Team | Description | +--------+ + + + + | 07/11/ | Hospital | [facility] | Conversion | | | 2013 | Encounter | HOSPITAL BUSINESS | Transaction, | | | | | OFFICE [address] | Provider Unknown | | | | | [address] [place], [place] | | | | | | [address] | (Fax) | | | | | [phone] | | | +--------+ + + + [...] | | | | | | [address] [facility], | | | | | | [place] [address] | | | | | | [phone] | | | | | | | | +--------+---------+ + + + documented as of this encounter Visit Diagnoses Not on filedocumented in this encounter"
--- OUTSIDE RECORDS SUMMARY | ~2020-05-28 | XMS | Encounter Summary ---
Demographics + + + | Address | [address] | | | [place] [address] | + + + | Home Phone | | + + + | Preferred Language | Unknown | + + + | Marital Status | | + + + | Restorationism Affiliation | 1013 | + + + | Race | Unknown | + + + | Ethnic Group | Unknown | + + + Author + + + | Author | [facility] | | | and [place] | + + + | Organization | [facility] | | [...] | | | | | [place] [address] | | + + + + + | James Langston | ECON | Unknown | | + + + + + Care Team Providers + +------+ + | Care Production Planning Supervisor Name | Role | Phone | + +------+ + | Ferdinand Arguello MD | PCP | | + +------+ + Encounter Details +--------+ + + + + | Date | Type | Department | Care Team | Description | +--------+ + + + + | 07/23/ | Hospital | [facility] | Jm Phelps | | | 2016 | Encounter | HOSPITAL EMERGENCY | [address] | | | | | CENTER [address] | [facility] | | | | | [address] [place] | [employer] [address] | | | | | [address] | [phone] | | | | | [phone] | | | +--------+ + + + [...] | | | | | | [address] [facility], | | | | | | [place] [address] | | | | | | [phone] | | | | | | | | +--------+---------+ + + + documented as of this encounter Procedures + +--------+ + + + | Procedure Name | Priori | Date/Time | Associated Diagnosis | Comments | | | ty | | | | + +--------+ + + + | XR CHEST 2 VIEWS | Routin | 07/23/2016 | | Results for this | | | e | 9:05 AM | | procedure are in the | | | | PDT | | results section. | + +--------+ + + + documented in this encounter Results XR Chest 2 VW (07/23/2016 9:05 AM PDT) + + | Specimen | + + | | + + + + + | Narrative | Performed At | + + + | Clinical Indication: Reason for study: left posterior rib pain | | | . Findings: Posteroanterior and lateral chest radiographs | | | were obtained. The lungs are well inflated. No infiltrate, | | | pneumonia, or pulmonary edema is present. The cardiac and | | | mediastinal structures appear normal. The pleural spaces and bony | | | structures are normal. Summary: Normal chest radiographs. | | | Read By: CLOVIS EATON MD Date: 07/23/2016 13:06 | | + + + + + | Procedure Note | + + | Roe, Rad Results In - 09/12/2017 11:33 PM PST | | Clinical Indication: Reason for study: | | left posterior rib pain | | | | . | | | | Findings: Posteroanterior and lateral chest radiographs were obtained. The | | lungs are well inflated. No infiltrate, pneumonia, or pulmonary edema is | | present. The cardiac and mediastinal structures appear normal. The pleural | | spaces and bony structures are normal. | | | | Summary: Normal chest radiographs. | | | | Read By: CLOVIS EATON MD | | Date: 07/23/2016 13:06 | | | + + documented in this encounter Visit Diagnoses Not on filedocumented in this encounter"
--- OUTSIDE RECORDS SUMMARY | ~2020-05-28 | XMS | Encounter Summary ---
Demographics + + + | Address | [address] | | | [place] [address] | + + + | Home Phone | | + + + | Preferred Language | Unknown | + + + | Marital Status | | + + + | Congregational Affiliation | 1013 | + + + | Race | Unknown | + + + | Ethnic Group | Unknown | + + + Author + + + | Author | [facility] | | | and [place] | + + + | Organization | [facility] | | | [...] [place] | | | | | [place] [address] | | + + + + + | James Langston | ECON | Unknown | | + + + + + Care Team Providers + +------+ + | Care Biological Technical Officer Name | Role | Phone | + +------+ + PCP | Unavailable | + +------+ + Encounter Details +--------+ + + + + | Date | Type | Department | Care Team | Description | +--------+ + + + + | 01/04/ | [facility] | [facility] | Job Byers | | | 2015 | Encounter | [facility] | [address] | | | | | MEDICAL CLIN[address] | [address] | | | | | [facility], | [facility], [place] | | | | | [place] [address] | [address] | | | | | [phone] | [phone] | | | | | | | [...] | | | | | | [place] [address] | | | | | | [phone] | | | | | | | | +--------+---------+ + + + documented as of this encounter Visit Diagnoses Not on filedocumented in this encounter"
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
--- OUTSIDE RECORDS SUMMARY | ~2020-05-28 | XMS | Encounter Summary ---
Demographics + + + | Address | [address] | | | [place] [address] | + + + | Home Phone | | + + + | Preferred Language | Unknown | + + + | Marital Status | | + + + | Cheondoism Affiliation | 1013 | + + + | Race | Unknown | + + + | Ethnic Group | Unknown | + + + Author + + + | Author | [facility] | | | and [place] | + + + | Organization | [facility] | | [...] | | | | | [place] [address] | | + + + + + | James Langston | ECON | Unknown | | + + + + + Care Team Providers + +------+ + | Care Optical Systems Engineer Name | Role | Phone | + +------+ + | Ferdinand Arguello MD | PCP | | + +------+ + Reason for Visit + + + | Reason | Comments | + + + | Shortness of Breath | | + + + Encounter Details +--------+---------+ + + + | Date | Type | Department | Care Team | Description | +--------+---------+ + + + | 05/21/ | Office | [facility] | Ernestina Nayak | SOB (shortness of | | 2020 | Visit | [facility] | Bridget, DO [address] | breath) (Primary | | | | [facility] [address] | [address] [place] | Dx); Rash; Diarrhea, | | | | [address], | [place] [address] | unspecified type; | | | | [place] [address] | [phone] | Generalized body | | | | [phone] | | aches; Cough with | | | | | | fever | +--------+---------+ + + + Social History [...] + + + | Blood Pressure | 152/93 | 05/21/2020 10:30 AM | | | | | PDT | | + + + + + | Pulse | 126 | 05/21/2020 10:30 AM | | | | | PDT | | + + + + + | Temperature | 37.7 C (99.8 F) | 05/21/2020 10:30 AM | | | | | PDT | | + + + + + | Respiratory Rate | 18 | 05/21/2020 10:30 AM | | | | | PDT | | + + + + + | Oxygen Saturation | 99% | 05/21/2020 10:30 AM | | | | | PDT | | + + + + + | Inhaled Oxygen | - | - | | | Concentration | | | | + + + + + | Weight | - | - | | + + + + + | Height | - | - | | + + + + + | Body Mass Index | - | - | | + + + + + documented in this encounter Progress Notes Ernestina Nayak, - 05/21/2020 10:10 AM PDT Patient ID: Haroldo Langston is a 34 y.o. year old male Chief Complaint: Chief Complaint Patient presents with Shortness of Breath Assessment and Plan: 1. SOB (shortness of breath) Coronavirus (COVID-19) NAAT 2. Rash 3. Diarrhea, unspecified type 4. Generalized body aches 5. Cough with fever Symptomatic care for viral process Rapid COVID test performed Work note and paperwork provided for 14 and quarantine in accordance with [facility]'s written david dance for [facility] published April 20, 2020. Subjective: HPI Patient comes to the walk-in clinic today complaining of 5-day history of fevers with a max imum temperature of 102.8. Also having shortness of breath with exertion, feeling easily fa tigued, muscle aches and a rare cough. He has a rash on his back and shoulders. Patient's medications, allergies, past medical, surgical, social and family histories were obtained and reviewed as appropriate. Review of Systems All other systems reviewed and are negative. Objective: Vitals: BP (!) 152/93 | Pulse 126 | Temp 37.7 C (99.8 F) (Oral) | Resp 18 | SpO2 99% Physical Exam Constitutional: General: He is not in acute distress. Appearance: He is well-developed. He is not diaphoretic. HENT: Head: Normocephalic and atraumatic. Right Ear: Hearing, tympanic membrane, ear canal and external ear normal. Left Ear: Hearing, tympanic membrane, ear canal and external ear normal. Nose: Nose normal. No mucosal edema or rhinorrhea. Right Sinus: No maxillary sinus tenderness or frontal sinus tenderness. Left Sinus: No maxillary sinus tenderness or frontal sinus tenderness. Mouth/Throat: Pharynx: Uvula midline. No oropharyngeal exudate or posterior oropharyngeal erythema. Tonsils: No tonsillar exudate or tonsillar abscesses. Eyes: Conjunctiva/sclera: Conjunctivae normal. Pupils: Pupils are equal, round, and reactive to light. Neck: Musculoskeletal: Neck supple. Trachea: Trachea normal. Cardiovascular: Rate and Rhythm: Normal rate and regular rhythm. Heart sounds: Normal heart sounds, S1 normal and S2 normal. Pulmonary: Effort: Pulmonary effort is normal. Breath sounds: Normal breath sounds. No wheezing, rhonchi or rales. Lymphadenopathy: Cervical: No cervical adenopathy. Skin: General: Skin is warm and dry. Findings: No rash. Comments: Excoriated erythematous diffuse urticarial rash on upper back and shoulders, a reas of hyperpigmented annular old healed lesions noted on lower back Neurological: Mental Status: He is alert and oriented to person, place, and time. Psychiatric: Speech: Speech normal. Electronically signed by: Ernestina Nayak DO 05/21/2020 10:59 AM PDT Note: Part of this report was transcribed using voice recognition software. Every effort wa s made to ensure accuracy. However, inadvertent computerized apparatus repair mechanic errors may be pre sent. documented in this encounter Plan of Treatment +--------+---------+ + + + | Date | Type | Specialty | Care Team | Description | +--------+---------+ + + + | 06/04/ | Office | Primary Care | Rand Braxton | | 2019 | Visit | | [address] | | | | | | [address] [facility], | | | | | | [place] [address] | | | | | | [phone] | | | | | | | | +--------+---------+ + + + documented as of this encounter Procedures + +--------+ + + + | Procedure Name | Priori | Date/Time | Associated Diagnosis | Comments | | | ty | | | | + +--------+ + + + | CORONAVIRUS | Routin | 05/21/2020 | SOB (shortness of | Results for this | | (COVID-19) NAAT | e | 10:36 AM | breath) | procedure are in the | | | | PDT | | results section. | + +--------+ + + + documented in this encounter Results Coronavirus (COVID-19) NAAT (05/21/2020 10:36 AM PDT) + + + + + + | Component | Value | Ref Range | Performed | Pathologist | | | | | At | Signature | + + + + + + | SARS-CoV-2, | NegativeComment: | Negative | [facility] | | | NAAT | SARS-CoV-2, RNA | | [facility] | | | (COVID-19) | (COVID-19) EUA Negative | | [facility]ITAL | | | | results, using the | | REGIONAL | | | | [employer] NOW Platform, | | MEDICAL | | | | should be treated as | | CENTER LAB | | | | presumptive and, if | | | | | | inconsistent with | | | | | | clinical signs and | | | | | | symptoms or necessary | | | | | | for patient management, | | | | | | should be tested with an | | | | | | alternative molecular | | | | | | assay. Please contact | | | | | | the laboratory for | | | | | | assistance as needed. | | | | | | Negative results do not | | | | | | preclude COVID-19 | | | | | | infection and should not | | | | | | be used as the sole | | | | | | basis for patient | | | | | | management decisions. | | | | | | Negative results should | | | | | | be considered in the | | | | | | context of a patient's | | | | | | recent exposures, | | | | | | history, presence of | | | | | | clinical signs and | | | | | | symptoms consistent with | | | | | | COVID-19. This assay | | | | | | has been cleared for use | | | | | | under an FDA Emergency | | | | | | Use Authorization. This | | | | | | test is used for | | | | | | clinical purposes. It | | | | | | should not be regarded | | | | | | as investigational or | | | | | | for research. This | | | | | | laboratory is certified | | | | | | under the Clinical | | | | | | Laboratory Improvement | | | | | | Amendments (CLIA) as | | | | | | qualified to perform | | | | | | high complexity testing. | | | | | | This test has been | | | | | | validated in accordance | | | | | | with the FDA's Guidance | | | | | | Document "Policy for | | | | | | Diagnostics Testing in | | | | | | Laboratories Certified | | | | | | to Perform High | | | | | | Complexity Testing under | | | | | | CLIA prior to Emergency | | | | | | Use Authorization for | | | | | | Coronavirus Disease-2019 | | | | | | during the Public | | | | | | Health Emergency" issued | | | | | | on January 03, 2020. | | | | | | FDA independent review | | | | | | of this validation is | | | | | | pending. This test is | | | | | | only authorized for the | | | | | | duration of time the | | | | | | declaration that | | | | | | circumstances exist | | | | | | justifying the | | | | | | authorization of the | | | | | | emergency use of in | | | | | | vitro diagnostic tests | | | | | | for detection of | | | | | | SARS-CoV-2 virus and/or | | | | | | diagnosis of COVID-19 | | | | | | infection under section | | | | | | 564(b)(1) of the Act, 21 | | | | | | U.S.C. 360bbb-3(b)(1), | | | | | | unless the authorization | | | | | | is terminated or | | | | | | revoked sooner. | | | | + + + + + + + + | Specimen | + + | Tissue - Both | | anterior nares (body | | structure) | + + + + + + + | Performing | Address | City/State/Zipcode | Phone Number | | Organization | | | | + + + + + | [facility] | [address] | [place] | [phone] | | [facility] | | [address] | | | [facility] | | | | + + + + + documented in this encounter Visit Diagnoses + + | Diagnosis | + + | SOB (shortness of breath) - Primary Shortness of breath | + + | Rash Rash and other nonspecific skin eruption | + + | Diarrhea, unspecified type | + + | Generalized body aches | + + | Cough with fever | + + documented in this encounter Additional Health Concerns + [...]
--- OUTSIDE RECORDS SUMMARY | ~2020-05-28 | XMS | Encounter Summary ---
Demographics + + + | Address | [address] | | | [place] [address] | + + + | Home Phone | | + + + | Preferred Language | Unknown | + + + | Marital Status | | + + + | Spiritism Affiliation | 1013 | + + + | Race | Unknown | + + + | Ethnic Group | Unknown | + + + Author + + + | Author | [facility] | | | and [place] | + + + | Organization | [facility] | | [...] | | | | | [place] [address] | | + + + + + | James Langston | ECON | Unknown | | + + + + + Care Team Providers + +------+ + | Care Supervisor Labor Gang Name | Role | Phone | + +------+ + | Ferdinand Arguello MD | PCP | | + +------+ + Reason for Visit +---------+--------+ + | Reason | Onset | Comments | | | Date | | +---------+--------+ + | Results | 12/05/ | Culture | | | 2019 | | +---------+--------+ + Encounter Details +--------+ + + + + | Date | Type | Department | Care Team | Description | +--------+ + + + + | 12/05/ | Telephone | [facility] | Ene Villareal, | Results (Culture) | | 2018 | | [facility] | DIE CUTTER OPERATOR [address] | | | | | [facility] [address] | [place] [address] | | | | | [address] [facility], | [phone] | | | | | [place] [address] | | | | | | [phone] | | | +--------+ + + + [...] this encounter Miscellaneous Notes Telephone Encounter - Aleksandra Bermudez CC CMA - 12/05/2018 7:21 PM PSTNotified patient that his culture for strep was positive and that he can olive picker Amoxicillin from his pharmac y to take twice a day for ten days. ARCELIA Coronado CMA elephone [place] unter - Aleksandra Bermudez CC CMA - 12/05/2018 7:21 PM PST----- Message from CANDELARIA García sent at 12/05/2018 19:19 PST ----- Your strep culture grew positive for strep A bacteria which is a treatable bacteria. The an tibiotic, Amoxicillin twice a day for 10 days, was sent to your pharmacy for you. If no imp rovement after being on antibiotics 72 hours please let us know. documented in this encounter Plan of Treatment +--------+---------+ + + + | Date | Type | Specialty | Care Team | Description | +--------+---------+ + + + | 06/04/ | Office | Primary Care | Rand Braxton | | | 2019 | Visit | | MD [address] | | | | | | [address] [facility], | | | | | | [place] [address] | | | | | | [phone] | | | | | | | | +--------+---------+ + + + documented as of this encounter Visit Diagnoses Not on filedocumented in this encounter"
--- OUTSIDE RECORDS SUMMARY | ~2020-05-28 | XMS | Encounter Summary ---
Demographics + + + | Address | [address] | | | [place] [address] | + + + | Home Phone | | + + + | Preferred Language | Unknown | + + + | Marital Status | | + + + | Islam Affiliation | 1013 | + + + | Race | Unknown | + + + | Ethnic Group | Unknown | + + + Author + + + | Author | [facility] | | | and [place] | + + + | Organization | [facility] | | [...] | | | | | [place] [address] | | + + + + + | James Langston | ECON | Unknown | | + + + + + Care Team Providers + +------+ + | Care Compressor Operator Name | Role | Phone | + +------+ + | Ferdinand Arguello MD | PCP | | + +------+ + Reason for Visit + + + | Reason | Comments | + + + | Abdominal Pain | | + + + Encounter Details +--------+ + + + + | Date | Type | Department | Care Team | Description | +--------+ + + + + | 02/07/ | Emergency | [facility] | Richard Schmid | Gastroenteritis, | | 2018 | | HOSP[facility] | MD [address] | infectious, presumed | | | | CENTER [address] | [address] | (Primary Dx) | | | | [address] [place], [place] | [place] [address] | | | | | [address] | [phone] | | | | | [phone] | | | +--------+ + + + [...] + + + | Blood Pressure | 111/69 | 02/07/2018 7:45 PM | | | | | PDT | | + + + + + | Pulse | 87 | 02/07/2018 7:45 PM | | | | | PDT | | + + + + + | Temperature | 36.1 C (97 F) | 02/07/2018 7:45 PM | | | | | PDT | | + + + + + | Respiratory Rate | 18 | 02/07/2018 7:45 PM | | | | | PDT | | + + + + + | Oxygen Saturation | 100% | 02/07/2018 7:45 PM | | | | | PDT | | + + + + + | Inhaled Oxygen | - | - | | | Concentration | | | | + + + + + | Weight | 73.9 kg (163 lb) | 02/07/2018 7:45 PM | | | | | PDT | | + + + + + | Height | 170.2 cm (5' 7") | 02/07/2018 7:45 PM | | | | | PDT | | + + + + + | Body Mass Index | 25.53 | 02/07/2018 7:45 PM | | | | | PDT | | + + + + + documented in this encounter Discharge Instructions AttachmentsThe following attachments cannot be sent through Care Everywhere.Gastroenteritis , Viral (Adult) (Finnish)documented in this encounter Medications at Time of [...] + documented as of this encounter ED Richard Santillan MD - 02/07/2018 7:51 PM PDTFormatting of this note might be differe nt from the original. Name: Haroldo Langston Date: 02/07/2018 : 1985 PCP: Ferdinand Arguello MD History CC: Abdominal Pain Arrival Mode: walk-in HPI: Haroldo Langston is a 32 y.o. male who presents to the ED for evaluation of abdominal pain for 3 days and vomiting today. Pt states that his pain is intermittent, but the vomitin g has worried him because he usually doesn't vomit unless he consumes ETOH. Pt reports that he came into the ED because 1 hour ago he "violently" vomited and had increased pain. Pt is also complaining of nausea, diarrhea, pain with urination, and decreased appetite. Pt notes all his kids and have been sick with similar symptoms. Pt denies fever. PMH: Past Medical History: Diagnosis Date Anxiety Bipolar 1 disorder (HCC) Depression Hematochezia Problem List: There is no problem list on file for this patient. PSH: Past Surgical History: Procedure Laterality Date APPENDECTOMY COLONOSCOPY 01/19/15 FINDINGS: Normal exam [facility] Dr. Byers EYE SURGERY age 4 "crossed eye" surgery Medications: Previous Medications BENZTROPINE (COGENTIN) 1 MG TABLET Take 1 mg by mouth 2 times daily. CITALOPRAM (CELEXA) 10 MG TABLET Take 10 mg by mouth Daily. CLONIDINE (CATAPRES) 0.1 MG TABLET Take 0.1 mg by mouth 2 times daily. LAMOTRIGINE (LAMICTAL) 200 MG TABLET Take 300 mg by mouth Daily. TRAZODONE (DESYREL) 100 MG TABLET Take 100 mg by mouth nightly. Allergies: Patient has no known allergies. Social History: Social History Social History Marital status: Spouse name: N/A Number of children: N/A Years of education: N/A Social History Main Topics Smoking status: Never Smoker Smokeless tobacco: Never Used Alcohol use No Drug use: Yes Types: Marijuana Sexual activity: Yes Other Topics Concern None Social History Narrative None Review of Systems: Constitutional is positive for decreased appetite, negative for fever. Gastrointestinal is positive for abdominal pain, nausea, vomiting, and diarrhea. Genitourinary is positive for pain with urination. As in HPI otherwise complete review of systems negative except for those listed above. Physical Exam VITAL SIGNS: Temp: 36.1 C (97 F) BP: 111/69 Pulse: 87 Resp: 18 SpO2: 100 % Constitutional: Patient was in no distress. HEENT: Normocephalic. Atraumatic. Oropharynx is clear with moist mucous membranes. Pupils e qual, extra occular movement intact. Chest: Lungs clear to auscultation without wheezes, rales or rhonchi. Cardiovascular: Regular rate and rhythm without murmurs, rubs or gallops. Abdomen: Bowel sounds normal, soft, no masses, no pulsatile masses. Diffuse tenderness with out guarding or rebound. Mildly elevated bowel sounds. Negative Bradly's point and Mcburney s point. Skin: Warm and dry. No erythema. No rash. Extremities: No cyanosis or edema. Neurologic: Alert & oriented, Normal motor function, no deficits noted. ED Course and Medical Decision Making: Haroldo Langston presented to the ED for evaluation, and he was triaged to the acute si de of the emergency department. Past medical records and nursing notes reviewed. Based on his history and exam clinical considerations include but are not restricted to gastroenterit is, viral infection, Labs Ordered: Labs Reviewed - No data to display IMAGING STUDIES: No orders to display Patient seen and examined. Patient does not look toxic or ill. All family has been sick w ith similar symptoms. This does not seem consistent with food poisoning is likely just cody l gastroenteritis. Recommended treating symptomatically and diet. No indication for testin g. CLINICAL IMPRESSION: 1. Gastroenteritis, infectious, presumed PLAN: Medications Given In ED: Medications ondansetron (ZOFRAN ODT) disintegrating tablet (ED homepack) 4 mg (not administered) Disposition: He was discharged in stable condition. Rx and Follow up: ED Prescriptions None Follow-up Information [facility]. Specialty: Emergency Medicine Why: As needed Contact information: [address] [place] [address] This document serves as a record of the serviced and decision personally performed by Og Schmid MD. It was created on their behalf by Chey Louise, a trained medical scri be. The creation of this document is based on the provider's statements to the medical scrib eNiru Schmid MD 02/07/182005 tein, Katie Leonard RN - 02/07/2018 7:44 PM PDTIntermittent abdominal pain with N/V/D. Diarrhea started 3 da ys ago with vomiting starting tonight. Electronically signed by Katie Weeks RN at 02/07 7:44 PM PDTdocumented in this encounter Plan of Treatment +--------+---------+ + + + | Date | Type | Specialty | Care Team | Description | +--------+---------+ + + + | 06/04/ | Office | Primary Care | Rand Braxton | | | 2019 | Visit | | [address] | | | | | | [address] [facility], | | | | | | [place] [address] | | | | | | [phone] | | | | | | | | +--------+---------+ + + + documented as of this encounter Visit Diagnoses + + | Diagnosis | + + | Gastroenteritis, infectious, presumed - Primary Colitis, enteritis, and | | gastroenteritis of presumed infectious origin | + + documented in this encounter Administered Medications + + + +------+------+------+ | Medication Order | MAR | Action | Dose | Rate | Site | | | Action | Date | | | | + + + +------+------+------+ | ondansetron (ZOFRAN ODT) | Dispense | 02/08/20 | 4 mg | | | | disintegrating tablet (ED | to Home | 18 8:04 | | | | | homepack) 4 mg 4 mg, Oral, EVERY | | PM PDT | | | | | 6 HOURS PRN, Nausea, Starting | | | | | | | Kathy 02/07/18 at 1955, Dispense for | | | | | | | home use., | | | | | | + + + +------+------+------+ +---+---+ | | | +---+---+ documented in this encounter
--- OUTSIDE RECORDS SUMMARY | ~2020-05-28 | XMS | Encounter Summary ---
Demographics + + + | Address | [address] | | | [place] [address] | + + + | Home Phone | | + + + | Preferred Language | Unknown | + + + | Marital Status | | + + + | Faith Affiliation | 1013 | + + + | Race | Unknown | + + + | Ethnic Group | Unknown | + + + Author + + + | Author | [facility] | | | and [place] | + + + | Organization | [facility] | | | and [...] | | | | | [place] [address] | | + + + + + | James Langston | ECON | Unknown | | + + + + + Care Team Providers + +------+ + | Care Revenue Specialist Name | Role | Phone | + +------+ + | Ferdinand Arguello MD | PCP | | + +------+ + Reason for Visit +--------+--------+ + | Reason | Onset | Comments | | | Date | | +--------+--------+ + | Other | 05/25/ | message for [facility] about ongoing fevers | | | 2019 | | +--------+--------+ + Encounter Details +--------+ + + + + | Date | Type | Department | Care Team | Description | +--------+ + + + + | 05/25/ | Telephone | [facility] | Ferdinand Arguello | Other (message for | | 2019 | | [facility] | [address] | [place] about ongoing | | | | [facility] [address] | [place], [place] | fevers) | | | | [address] [facility], | [address] | | | | | [place] [address] | [phone] | | | | | [phone] | | | +--------+ + + + [...] Telephone Encounter - Yin Bob RN - 05/25/2020 3:25 PM PDTSpoke with patient. He reports that he is still having sporadic fevers as high as 101.0, is fatigued, and paresh nues to be short of breath with exertion. He has been isolating since his test, but now his daughter is having similar symptoms. He does feel like he is improving, but is concerned rivka t he is still having symptoms. I advised that he should continue to isolate until he has bee n fever free for at least 72 hours without tylenol or ibuprofen. Also gave strict ER precaut ions. Patient acknowledged. Yin Bob RN elephone Encounter - Dulce Oliva - 05/25/2020 3:15 PM PDTWife Maria G is reque sting a call back today regarding Haroldo still having fevers off and on and seems to be highe r in the mornings. He was seen in the [facility] on 05-21-20 and had a rapid Covid test which came back negative. FYI: daughter started getting fevers yesterday as well which she will be olaf roque a HEALTH CARE LIAISON at the [facility]. Please call Maria G back today and advise. Dulce Oliva documented in this encou nter Plan of Treatment +--------+---------+ + + + | Date | Type | Specialty | Care Team | Description | +--------+---------+ + + + | 06/04/ | Office | Primary Care | Rand Braxton | | | 2019 | Visit | | [address] | | | | | | [address] [facility], | | | | | | [place] [address] | | | | | | [phone] | | | | | | | | +--------+---------+ + + + documented as of this encounter Visit Diagnoses Not on filedocumented in this encounter"
--- OUTSIDE RECORDS SUMMARY | ~2020-05-28 | XMS | Encounter Summary ---
Demographics + + + | Address | [address] | | | [place] [address] | + + + | Home Phone | | + + + | Preferred Language | Unknown | + + + | Marital Status | | + + + | Anabaptism Affiliation | 1013 | + + + | Race | Unknown | + + + | Ethnic Group | Unknown | + + + Author + + + | Author | [facility] | | | and [place] | + + + | Organization | [facility] | | [...] [place] | | | | | [place] [address] | | + + + + + | James Langston | ECON | Unknown | | + + + + + Care Team Providers + +------+ + | Care Pediatric Assistant Name | Role | Phone | + +------+ + PCP | Unavailable | + +------+ + Encounter Details +--------+ + + + + | Date | Type | Department | Care Team | Description | +--------+ + + + + | 04/28/ | Hospital | [facility] | [facility] | | | 2012 | Encounter | HOSPITAL EM[facility]Y | MD [address] | | | | | CENTER [address] | [facility] | | | | | [address] [place], [place] | [place] [address] | | | | | [address] | [phone] | | | | | [phone] | | | +--------+ + + + [...] | | | | | | [address] [facility], | | | | | | [place] [address] | | | | | | [phone] | | | | | | | | +--------+---------+ + + + documented as of this encounter Visit Diagnoses Not on filedocumented in this encounter"
--- OUTSIDE RECORDS SUMMARY | ~2020-05-28 | XMS | Encounter Summary ---
Demographics + + + | Address | [address] | | | [place] [address] | + + + | Home Phone | | + + + | Preferred Language | Unknown | + + + | Marital Status | | + + + | Jehovah'S Witness Affiliation | 1013 | + + + | Race | Unknown | + + + | Ethnic Group | Unknown | + + + Author + + + | Author | [facility] | | | and [place] | + + + | Organization | [facility] | | | [...] [place] | | | | | [place] [address] | | + + + + + | James Langston | ECON | Unknown | | + + + + + Care Team Providers + +------+ + | Care Generator Technician Name | Role | Phone | + +------+ + PCP | Unavailable | + +------+ + Encounter Details +--------+ + + + + | Date | Type | Department | Care Team | Description | +--------+ + + + + | 07/01/ | Hospital | [facility] | Caesar Lagos | | | 2008 | Encounter | HOSPITAL MED SURG | MD [address] | | | | | [address] | [address] | | | | | [place], [place] | [place] [address] | | | | | [address] | [phone] | | | | | [phone] | | | +--------+ + + + [...] + + documented as of this encounter Consult Notes Caesar Lagos MD - 07/01/2009 7:31 AM PDTDictating Practitioner: Caesar Lagos MD Cc: EMERGENCY ROOM CONSULTATION REPORT DATE: July 01, 2009. TIME: 0919 hours. HISTORY OF PRESENT ILLNESS: This 23-year-old man presented to the Emergency Room this morning with a history of doing w ell in his usual state of good health until he awakened this morning around 2:30 in the a.m. with vague abdominal discomfort. He felt gas, bloating, and perhaps the need to have a bowel movement: however, this did not relieve his discomfort. He had ea ten a normal meal the night before and considered himself free of symptoms until he awakened . He could not sleep once he awakened. The pain became more persistent, more constant, more severe: then gradually migrated into the right lower quadra nt where it persists. The pain is now constant with marked severity to the point where any physical movement such as ambulation or riding in a vehicle produced increased pain. The patient denies any GI problems or previous accidents, injuries, or sig nificant medical illnesses. PAST MEDICAL HISTORY: Benign. 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 here in [place]. 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 He is . He does use ACETAMINOPHEN on occasion for these minor symptoms. He denies the use of tobacco or other drugs although he does occasio latanya, very occasionally, use alcohol. REVIEW OF SYSTEMS: Negative for complaints other than the present illness. No recent URI, no urinary tract sy mptoms although he has had some difficulty initiating micturition since onset of these sympt oms. There is no history of chronic GI complaint. FAMILY HISTORY: No significant family history. PHYSICAL EXAMINATION: GENERAL: He is alert, cooperative but in obvious mild acute distress lying quietly on exami unruly cart. He is accompanied by his . HEENT: No active disease. Oropharynx is clear. No mucosal lesions. Mouth seems a little dry. NECK: Supple. Trachea midline. No thyromegaly, no masses, no nodes. CHEST: Clear to auscultation. No rales, wheeze, or stridor. CARDIAC: Exam finds normal sinus rhythm, no murmurs are heard. ABDOMEN: Soft, silent. Exquisitely tender in the right lower quadrant over McBurney's poin t with referred tenderness to the point as well. No palpable masses appreciated. : Deferred. RECTAL: Deferred. EXTREMITIES: Well-developed, muscular. There is no cyanosis, pallor, or edema. SKIN: Warm and dry. Face appears flushed. NEUROLOGIC: Physiologic. No ataxia, no asymmetry. Cranial nerves II-XII appear intact. T he patient does appear well hydrated overall. LABS AND TESTS: Significant laboratory study includes white cell count elevated at 17,000. The patient was being prepped to have a CAT scan prior to my exam, we cancelled that given his clearcut physical findings of acute peritoneal distress right lower quadrant consistent with a clinical diagnosis of acute appendicitis. RECOMMENDATIONS: I have recommended appendectomy based on findings. PARQ conference is held. The patient and his had a chance to ask questions and have g iven consent. [facility] Signed and Approved by: CAESAR LAGOS MD 07/09/2009 10:28:00 documented in this encounter Plan of Treatment +--------+---------+ + + + | Date | Type | Specialty | Care Team | Description | +--------+---------+ + + + | 07/31/ | Office | Primary Care | Rand Braxton | | | 2020 | Visit | | [address] | | | | | | [address] [place], | | | | | | [place] [address] | | | | | | [phone] | | | | | | | | +--------+---------+ + + + documented as of this encounter Visit Diagnoses Not on filedocumented in this encounter"
--- OUTSIDE RECORDS SUMMARY | ~2020-05-28 | XMS | Encounter Summary ---
Demographics + + + | Address | [address] | | | [place] [address] | + + + | Home Phone [...] | | | | | [place] [address] | | + + + + + | James Langston | ECON | Unknown | | + + + + + Care Team Providers + +------+ + | Care Orthodontic Treatment Coordinator Name | Role | Phone | + +------+ + | Ferdinand Arguello MD | PCP | | + +------+ + Encounter Details +--------+ + + + + | Date | Type | Department | Care Team | Description | +--------+ + + + + | 07/26/ | Hospital | [facility] | | | | 2017 | Encounter | [facility] | | | | | | [facility] [address] | | | | | | [address] [place], | | | | | | [place] [address] | | | | | | [phone] | | | +--------+ + + + [...] | | | | | | [place] [address] | | | | | | [phone] | | | | | | | | +--------+---------+ + + + documented as of this encounter Visit Diagnoses Not on filedocumented in this encounter"
--- OUTSIDE RECORDS SUMMARY | ~2020-05-28 | XMS | Clinical Summary ---
Demographics + + + | Address | [address] | | | [place] [address] | + + + | Home Phone | | + + + | Preferred Language | Unknown | + + + | Marital Status | | + + + | Uatsdin Affiliation | 1013 | + + + | Race | Unknown | + + + | Ethnic Group | Unknown | + + + Author + + + | Author | [facility] | | | and [place] | + [...] | | | | | [place] [address] | | + + + + + | James Langston | ECON | Unknown | | + + + + + Care Team Providers + +------+ + | Care Gasser Machine Operator Name | Role | Phone | + +------+ + | Ferdinand Arguello MD | PCP | | + +------+ + Allergies No Known Allergies Medications + + + +---------+------+------+-------+ | Medication | Sig | Dispensed | Refills | Star | End | Statu | | | | | | t | Date | s | | | | | | Date | | | + + + +---------+------+------+-------+ | lamotrigine | Take 400 mg by mouth | | 0 | | | Activ | | (LAMICTAL) 200 MG | Daily. | | | | | e | | tablet | | | | | | | + + + +---------+------+------+-------+ | cloNIDine | Take 0.1 mg by mouth | | 0 | | | Activ | | (CATAPRES) 0.1 mg | 2 times daily. | | | | | e | | tablet | | | | | | | + + + +---------+------+------+-------+ | traZODone | Take 100 mg by mouth | | 0 | | | Activ | | (DESYREL) 100 mg | nightly. | | | | | e | | tablet | | | | | | | + + + +---------+------+------+-------+ | citalopram | take 1 tablet by | | 0 | 01/2 | | Activ | | (CELEXA) 40 mg | mouth daily | | | 3/20 | | e | | tablet | | | | 19 | | | + + + +---------+------+------+-------+ | hydrOXYzine | | | 0 | 12/0 | | Activ | | hydrochloride | | | | 4/20 | | e | | (ATARAX) 25 mg | | | | 19 | | | | tablet | | | | | | | + + + +---------+------+------+-------+ Active Problems No known active problems Encounters +--------+ + + + + | Date | Type | Specialty | Care Team | Description | +--------+ + + + + | 05/28/ | Telephone | Immediate Care | Fedrinand Arguello | Advice Only | 2019 | | | MD Brandon | | +--------+ + + + + | 05/25/ | Telephone | Primary Care | Ferdinand Arguello | Other (message for | 2019 | | | MD [address] | [facility] about ongoing | | | | | | fevers) | +--------+ + + + + 05/21/ | Office | Immediate Care | Ernestina Nayak | SOB (shortness of | 2019 | Visit | | DO Bridget | breath) (Primary | | | | | | Dx); Rash; Diarrhea, | | | | | | unspecified type; | | | | | | Generalized body | | | | | | aches; Cough with | | | | | | fever | +--------+ + + + + 05/21/ | Telephone | Immediate Care | Ernestina Nayak | Results | 2019 | | | DO Bridget | | +--------+ + + + + from Last 3 Months Family History + + +------+ + | Medical History | Relation | Name | Comments | + + +------+ + | Diabetes | Father | | | + + +------+ + | Colon cancer | Maternal | | | | | Grandfath | | | | | er | | | + + +------+ + | Diabetes | Mother | | | + + +------+ + + +------+--------+ + | Relation | Name | Status | Comments | + +------+--------+ + | Father | | | | + +------+--------+ + | Maternal Grandfather | | | | + +------+--------+ + | Mother | | | | + +------+--------+ + Social History + +-------+ +--------+------+ | [...] on file | | + + + Last Filed Vital Signs + + + [...] | | + + + + + Plan of Treatment +--------+---------+ + + + | Date | Type | Specialty | Care Team | Description | +--------+---------+ + + + | 06/04/ | Office | Primary Care | Rand Braxton | | | 2020 | Visit | | [address] | | | | | | [address] [place], | | | | | | [place] [address] | | | | | | [phone] | | | | | | | | +--------+---------+ + + + + + + + + | Health Maintenance | Due Date | Last | Comments | | | | Done | | + + + + + | Hepatitis C | | | | | Screening | 4 | | | + + + + + | Vaccine: Influenza | | 08/04/20 | | | (#1) | 0 | 19 | | + + + + + | Colorectal Cancer | | 01/20/20 | | | Screening | 5 | 15, | | | (Colonoscopy) | | 01/20/20 | | | | | 15 | | + + + + + | Vaccine: | | 10/19/20 | | | Dtap/Tdap/Td (2 - | 5 | 15 | | | Td) | | | | + + + + + Procedures + +--------+ + + + | [...] section. | + +--------+ + + + from Last 3 Months Results Coronavirus (COVID-19) NAAT (05/21/2020 10:36 AM [...] | | REGIONAL | | | | [employer], | | MEDICAL | [...] + + | [facility] | [address] | [place], [place] | [phone] | | [facility] | | [id number] | | | [facility] | | | | + + + + + from Last 3 Months Insurance + +--------+ +--------+ +---------+--------+ | Payer | Benefi | Subscriber | Effect | Phone | Address | Type | | | t Plan | ID | georgina | | | | | | / | | Dates | | | | | | Group | | | | | | + +--------+ +--------+ +---------+--------+ | [employer] | [employer] | [id number] | | [phone] | | Medica | | MEDICAID HMO | HEALTH | | 015-Pr | 1 | | id | | | MDCD | | esent | | | | | | [place]MO [place] | | | | | | + +--------+ +--------+ +---------+--------+ | [employer] | [employer] | [id number] | | [phone] | | Medica | | MEDICAID HMO | HEALTH | | 018-Pr | 1 | | id | | | MDCD | | esent | | | | | | [place] | | | | | | + +--------+ +--------+ +---------+--------+ + +--------+ +--------+ + + | Guarantor Name | Accoun | Relation to | Date | Phone | Billing Address | | | t Type | Patient | of | | | | | | | | | | + +--------+ +--------+ + + | Haroldo Langston | Person | Self [birth year] | [address] | | | al/Fam | | 1984 | [address] | [place] | | | [place] | | | 0 (Home) | [address] | + +--------+ +--------+ + + | Haroldo Langston | Person | Self [birth year] | [address] | | | al/Fam | | 1984 | [address] | [place] | | | [place] | | | 0 (Home) | [address] | + +--------+ +--------+ + + Advance Directives + + + + + | Type | Date Recorded | Patient | Explanation | | | | Recruiting Assistant | | + + + + + | Power of | | | | | Fisherman Helper | | | | + + + + + | Advance | 11/05/2018 12:11 | | | | Directive | PM | | | + + + + +
--- OUTSIDE RECORDS SUMMARY | ~2020-05-28 | XMS | Encounter Summary ---
Demographics + + + | Address | [address] | | | [place] [address] | + + + | Home Phone [...] LpLA | | | | | [place] [address] | | + + + + + | James Langston | ECON | Unknown | | + + + + + Care Team Providers + +------+ + | Care Bsw Name | Role | Phone | + +------+ + PCP | Unavailable | + +------+ + Encounter Details +--------+ + + + + | Date | Type | Department | Care Team | Description | +--------+ + + + + | 05/25/ | Hospital | [facility] | Ferdinand Barry | | | 2014 | Encounter | [facility] | [address] | | | | | [address] | [address] | | | | | [address] [place], [place] | [place] [address] | | | | | [address] | [phone] | | | | | [phone] | | | +--------+ + + + [...] | | | | [address] [facility], | | | | | | [place] [address] | | | | | | [phone] | | | | | | | | +--------+---------+ + + + documented as of this encounter Procedures + +--------+ + + + | Procedure Name | Priori | Date/Time | Associated Diagnosis | Comments | | | ty | | | | + +--------+ + + + | STREPTOCOCCUS GROUP | STAT | 05/25/2014 | | Results for this | | A, RAPID SCREEN | | 3:38 AM | | procedure are in the | | | | PDT | | results section. | + +--------+ + + + | CBC W/AUTO | STAT | 05/25/2014 | | Results for this | | DIFFERENTIAL | | 3:22 AM | | procedure are in the | | | | PDT | | results section. | + +--------+ + + + | COMPREHENSIVE | STAT | 05/25/2014 | | Results for this | | METABOLIC PANEL | | 3:22 AM | | procedure are in the | | | | PDT | | results section. | + +--------+ + + + documented in this encounter Results Streptococcus Group A, Rapid Screen (05/25/2014 3:38 AM PDT) + + + + + + | Component | Value | Ref Range | Performed | Pathologist | | | | | At | Signature | + + + + + + | STREP GROUP | NEGATIVE | NEGATIVE | EXTERNAL | | | A ANTIGEN | | | LAB | | + + + + + + | Internal QC | POSITIVE | POSITIVE | EXTERNAL | | | | | | LAB | | + + + + + + | Reflex | YES | | EXTERNAL | | | | [...] | | | + +---------+ + + CBC w/ Auto Differential (05/25/2014 3:22 AM PDT) + +-------+ + + + | Component | Value | Ref Range | Performed | Pathologist | | | | | At | Signature | + +-------+ + + + | WBC | 9.8 | 4.6 - 10.5 | EXTERNAL | | | | | 1000/mm3 | LAB | | + +-------+ + + + | RBC | 4.66 | 4.36 - 5.83 | EXTERNAL | | | | | mil/mm3 | LAB | | + +-------+ + + + | HGB, | 14.1 | 13.1 - 17.4 | EXTERNAL | | | External | | g/dL | LAB | | + +-------+ + + + | HCT, | 39.5 | 39.0 - 51.9 % | EXTERNAL | | | External | | | LAB | | + +-------+ + + + | MCV | 85 | 82 - 96 fl | EXTERNAL | | | | | | LAB | | + +-------+ + + + | MCH | 30.3 | 27.7 - 32.3 pg | EXTERNAL | | | | | | LAB | | + +-------+ + + + | MCHC | 35.7 | 32.0 - 36.9 | EXTERNAL | | | | | g/dL | LAB | | + +-------+ + + + | RDW-CV | 13 | <=17.0 % | EXTERNAL | | | | | | LAB | | + +-------+ + + + | RDW-SD | 39.8 | 34.0 - 57.0 fL | EXTERNAL | | | | | | LAB | | + +-------+ + + + | Platelet | 242 | 150 - 450 | EXTERNAL | | | Count | | 1000/mm3 | LAB | | | Plasma | | | | | + +-------+ + + + | MPV | 8.9 | 9.4 - 12.4 FL | EXTERNAL | | | | | | LAB | | + +-------+ + + + | % Segmented | 82.3 | 42.0 - 76.0 % | EXTERNAL | | | | | | LAB | | | Neutrophils | | | | | + +-------+ + + + | % | 7.3 | 29.0 - 49.0 % | EXTERNAL | | | Lymphocytes | | | LAB | | + +-------+ + + + | % Monocytes | 10.2 | 3.0 - 13.0 % | EXTERNAL | | | | | | LAB | | + +-------+ + + + | % | 0.1 | 0.0 - 7.0 % | EXTERNAL | | | Eosinophils | | | LAB | | + +-------+ + + + | % Basophils | 0.1 | 0.0 - 2.0 % | EXTERNAL | | | | | | LAB | | + +-------+ + + + | Absolute | 8.04 | 2.80 - 7.70 | EXTERNAL | | | Neutrophils | | 1000/mm3 | LAB | | + +-------+ + + + | Absolute | 0.71 | 1.20 - 3.30 | EXTERNAL | | | Lymphocytes | | 1000/mm3 | LAB | | + +-------+ + + + | Absolute | 1 | 0.00 - 0.80 | EXTERNAL | | | Monocytes | | 1000/mm3 | LAB | | + +-------+ + + + | Absolute | 0.01 | 0.00 - 0.70 | EXTERNAL | | | Eosinophils | | 1000/mm3 | LAB | | + +-------+ + + + | Absolute | 0.01 | 0.00 - 0.20 | EXTERNAL | [...] + +---------+ + + Comprehensive Metabolic Panel (05/25/2014 3:22 AM PDT) + +-------+ + + + | Component | Value | Ref Range | Performed | Pathologist | | | | | At | Signature | + +-------+ + + + | Sodium | 133 | 132 - 143 | EXTERNAL | | | | | mmol/L | LAB | | + +-------+ + + + | Potassium | 3.8 | 3.3 - 4.9 | EXTERNAL | | | | | mmol/L | LAB | | + +-------+ + + + | Cl | 101 | 95 - 108 mmol/L | EXTERNAL | | | | | | LAB | | + +-------+ + + + | CO2 | 26 | 23 - 34 mmol/L | EXTERNAL | | | | | | LAB | | + +-------+ + + + | Anion Gap | 6 | 7 - 16 | EXTERNAL | | | | | | LAB | | + +-------+ + + + | Calcium | 9 | 8.3 - 10.0 | EXTERNAL | | | | | mg/dL | LAB | | + +-------+ + + + | Glucose | 117 | 70 - 110 mg/dL | EXTERNAL | | | | | | LAB | | + +-------+ + + + | BUN, Bld | 18 | 5 - 26 mg/dL | EXTERNAL | | | | | | LAB | | + +-------+ + + + | Creatinine | 1.3 | 0.7 - 1.4 mg/dL | EXTERNAL | | | | | | LAB | | + +-------+ + + + | BUN/Creatin | 13.8 | 7.0 - 24.0 | EXTERNAL | | | ine Ratio | | RATIO | LAB | | + +-------+ + + + | GFR | 60 | >=60 | EXTERNAL | | | ESTIMATE | | mL/min/1.73m2 | LAB | | | (REF) | | | | | + +-------+ + + + | Bilirubin, | 0.6 | <=1.2 mg/dL | EXTERNAL | | | Total | | | LAB | | + +-------+ + + + | Protein, | 7.8 | 6.6 - 8.5 g/dL | EXTERNAL | | | Total | | | LAB | | + +-------+ + + + | Albumin | 3.9 | 3.0 - 4.5 g/dL | EXTERNAL | | | | | | LAB | | + +-------+ + + + | Alkaline | 101 | 33 - 151 U/L | EXTERNAL | | | Phosphatase | | | LAB | | + +-------+ + + + | ALT, | 51 | 30 - 65 U/L | EXTERNAL | | | External | | | LAB | | + +-------+ + + + | AST, | 24 | <=38 U/L | EXTERNAL | | [...]
--- OUTSIDE RECORDS SUMMARY | ~2020-05-28 | XMS | Encounter Summary ---
Demographics + + + | Address | [address] | | | [place] [address] | + + + | Home Phone | | + + + | Preferred Language | Unknown | + + + | Marital Status | | + + + | Adventism Affiliation | 1013 | + + + | Race | Unknown | + + + | Ethnic Group | Unknown | + + + Author + + + | Author | [facility] | | | and [place] | + + + | Organization | [facility] | | | [...] | | | | | [place] [address] | | + + + + + | James Langston | ECON | Unknown | | + + + + + Care Team Providers + +------+ + | Care Filbert Grower Name | Role | Phone | + +------+ + | Ferdinand Arguello MD | PCP | | + +------+ + Encounter Details +--------+ + + + + | Date | Type | Department | Care Team | Description | +--------+ + + + + | 11/19/ | Hospital | [facility] | Rebekah Lorenzo | | | 2016 | Encounter | H[facility] XRAY [address] | [address] | | | | | [address] | [place] | | | | | [place] | [place] [address] | | | | | [address] | [phone] | | | | | [phone] | | | +--------+ + + + [...] | | | | | [address] [facility], | | | | | | [place] [address] | | | | | | [phone] | | | | | | | | +--------+---------+ + + + documented as of this encounter Procedures + +--------+ + + + | Procedure Name | Priori | Date/Time | Associated Diagnosis | Comments | | | ty | | | | + +--------+ + + + | XR CERVICAL SPINE 4 | Routin | 11/19/2015 | | Results for this | | OR 5 VWS | e | 4:56 PM | | procedure are in the | | | | PST | | results section. | + +--------+ + + + documented in this encounter Results XR Cervical Spine 4 or 5 Vws (11/19/2015 4:56 PM PST) + + | Specimen | + + | | + + + + + | Narrative | Performed At | + + + | [facility]IG[facility] CERVICAL SPINE AND THREE VIEW | | | THORACIC SPINE: HISTORY: Pain. FINDINGS: There is mild disk | | | height loss at C5-C6 with endplate productive change. Cervical | | | vertebral bodies are normally aligned. There is no evidence of an | | | acute fracture or subluxation. The dens and lateral masses are | | | unremarkable. The lung apices are clear. Neural foramen are | | | patent. Thoracic vertebral bodies are normally aligned. No acute | | | fracture is identified. Disk heights are normal. IMPRESSION: No | | | evidence of an acute process. Mild degenerative change of the | | | midcervical spine. JOB #: [id number] Read By: | | | BRITTANI AQUINO MD Released By: BRITTANI AQUINO MD Date: | | | 11/20/2015 11:37 | | + + + + + | Procedure Note | + + | Roe, Rad Results In - 09/12/2017 9:26 PM PST ORIGINAL [facility]VEN [facility] CERVICAL | | SPINE AND THREE VIEW THORACIC SPINE: HISTORY:Pain. FINDINGS:There is mild disk height | | loss at C5-C6 with endplate productive change. Cervical vertebral bodies are normally | | aligned. There is no evidence of an acute fracture or subluxation. The dens and | | lateral masses are unremarkable. The lung apices are clear. Neural foramen are patent. | | Thoracic vertebral bodies are normally aligned. No acute fracture is identified. | | Disk heights are normal. IMPRESSION:No evidence of an acute process. Mild degenerative | | change of the midcervical spine. JOB #: [id number] Read By: BRITTANI Elaine | | MD MILES Released By: YARI GAINESate: 11/20/2015 11:37 | | | |FINDINGS: | |There is mild disk height loss at C5-C6 with endplate productive change. Cervical vertebra l bodies are normally aligned. There is no evidence of an acute fracture or subluxation. T he dens and lateral masses are unremarkable. The lung apices are | |clear. Neural foramen are patent. Thoracic vertebral bodies are normally aligned. No acu te fracture is identified. Disk heights are normal. | | | |IMPRESSION: | |No evidence of an acute process. Mild degenerative change of the midcervical spine. | | | | | |JOB #: [id number] | | | |Read By: BRITTANI AQUINO MD | | | |Released By: BRITTANI AQUINO MD | |Date: 11/20/2015 11:37 | | | | | + + documented in this encounter Visit Diagnoses Not on filedocumented in this encounter"
--- OUTSIDE RECORDS SUMMARY | ~2020-05-28 | XMS | Encounter Summary ---
Demographics + + + | Address | [address] | | | [place] [address] | + + + | Home Phone | | + + + | Preferred Language | Unknown | + + + | Marital Status | | + + + | Mandaen Affiliation | 1013 | + + + | Race | Unknown | + + + | Ethnic Group | Unknown | + + + Author + + + | Author | [facility] | | | and [place] | + + + | Organization | [facility] | | [...] | | | | | [place] [address] | | + + + + + | James Langston | ECON | Unknown | | + + + + + Care Team Providers + +------+ + | Care Group Counselor Name | Role | Phone | + +------+ + | Ferdinand Arguello MD | PCP | | + +------+ + Reason for Visit +--------+ + | Reason | Comments | +--------+ + | Cough | cough, fever, chills, body aches, back ache x 2 days | +--------+ + Encounter Details +--------+---------+ + + + | Date | Type | Department | Care Team | Description | +--------+---------+ + + + | 12/03/ | Office | [facility] | Betty Colon, | Influenza A (Primary | | 2019 | Visit | [facility] | PROFESSOR OF THEOLOGY-DIRECT SERVICE WORKER [address] | Dx); Flu-like | | | | [facility] [address] [place] | symptoms; Sore | | | | [address] [place], | [place] [address] | throat | | | | [place] [address] | [phone] | | | | | [phone] | | | +--------+---------+ + + + [...] + + + | Blood Pressure | 104/68 | 12/03/2018 11:02 AM | | | | | PST | | + + + + + | Pulse | 94 | 12/03/2018 11:02 AM | | | | | PST | | + + + + + | Temperature | 36.9 C (98.5 F) | 12/03/2018 11:02 AM | | | | | PST | | + + + + + | Respiratory Rate | 16 | 12/03/2018 11:02 AM | | | | | PST | | + + + + + | Oxygen Saturation | 98% | 12/03/2018 11:02 AM | | | | | PST | | + + + + + | Inhaled Oxygen | - | - | | | Concentration | | | | + + + + + | Weight | 72.6 kg (160 lb) | 12/03/2018 11:02 AM | | | | | PST | | + + + + + | Height | 170.2 cm (5' 7") | 12/03/2018 11:02 AM | | | | | PST | | + + + + + | Body Mass Index | 25.06 | 12/03/2018 11:02 AM | | | | | PST | | + + + + + documented in this encounter Patient Instructions Patient Instructions Betty Colon PROFESSOR OF THEOLOGY-DIRECT SERVICE WORKER - 12/03/2018 11:46 AM PSTTake Tamiflu as p rescribed Supportive care: Increase PO intake of fluids, warm fluids and honey, PRN OTC cold medicat ions, Ibuprofen/Tylenol as needed for pain/fever. Salt water gargling, chloraseptic spray a nd throat lozenges PRN for sore throat. Antihistamine PRN to help dry secretions. Nasal sa line spray or Neti Pot PRN. Influenza (Adult) Influenza is also called the flu. It is a viral illness that affects the air passages of yo ur lungs. It is different from the common cold. The flu can easily be passed from one to per son to another. It may be spread through the air by coughing and sneezing. Or it can be spre ad by touching the sick person and then touching your own eyes, nose, or mouth. The flu starts 1 to 3 days after you are exposed to the flu virus. It may lastfor 1 to 2 weeks but many people feel tired or fatigued for many weeks afterward. You usually don t n eed to take antibiotics unless you have a complication. This might be an ear or sinus infect ion or pneumonia. Symptoms of the flu may be mild or severe. They can include extreme tiredness (wanting to s ely in bed all day), chills, fevers, muscle aches, soreness with eye movement, headache, and a dry, hacking cough. Home care Follow these guidelines when caring for yourself at home: Avoid being around cigarette smoke, whether yours or other people s. Acetaminophen or ibuprofen will help ease your fever, muscle aches, and headache. Don t give aspirin to anyone younger than 18 who has the flu. Aspirin can harm the liver. Nausea and loss of appetite are common with the flu. Eat light meals. Drink 6 to 8 glass es of liquids every day. Good choices are water, sport drinks, soft drinks without caffeine, juices, tea, and soup. Extra fluids will also help loosen secretions in your nose and lungs . Lsfn-vfg-ivmetyk cold medicines will not make the flu go away faster. But the medicines may help with coughing, sore throat, and congestion in your nose and sinuses. Don t use a decongestant if you have high blood pressure. Stay home until your fever has been gone for at least 24 hours without using medicine to reduce fever. Follow-up care Follow up with your healthcare provider, or as advised, if you are not getting better over the next week. If you are age 65 or older, talk with your provider about getting a pneumococcal vaccine ev ulises 5 years. You should also get this vaccine if you have chronic asthma or COPD. All adults should get a flu vaccine every fall. Ask your provider about this. When to seek medical advice Call your healthcare provider right away if any of these occur: Cough with lots of colored mucus (sputum) or blood in your mucus Chest pain, shortness of breath, wheezing, or trouble breathing Severe headache, or face, neck, or ear pain New rashwith fever Fever of 100.4F (38C)or higher, or asdirected by your healthcare provider Confusion, behavior change, or seizure Severe weakness or dizziness You get a newfever or cough after getting better for a few days Date Last Reviewed: 11/05/201619994707-5923 [employer]. [address] [place] [address], [place] [address]. All righ ts reserved. This information is not intended as a substitute for professional medical care. Always follow your healthcare professional's instructions. documented in this encounter Progress Notes Betty Colon, KIRT - 12/03/2018 10:50 AM PSTFormatting of this note might be diffe rent from the original. Subjective: Patient ID: Haroldo Langston is a 33 y.o. male. Chief Complaint Patient presents with Cough cough, fever, chills, body aches, back ache x 2 days HPI Here today with complaints of cough, fever/chills (TM 101 last night),headache, mild sore t hroat, and body aches including low back for two days; feels a little short of breath when h e coughs. says it hit him like a "ton of bricks" late Sunday evening. He has been taking ibu profen which temporarily helps the fever and body aches. No ear pain, lightheadedness or dizziness Appetite is low; he is drinking a lot of water He did not have a flu shot this year; other family members have been sick with strep and si nus infections; had strep throat last week Past Medical History: Diagnosis Date Anxiety Bipolar 1 disorder (HCC) Depression Hematochezia Past Surgical History: Procedure Laterality Date APPENDECTOMY COLONOSCOPY 01/19/15 FINDINGS: Normal exam [facility] Dr. Byers EYE SURGERY age 4 "crossed eye" surgery No Known Allergies There are no active problems to display for this patient. Current Outpatient Prescriptions on File Prior to Visit Medication Sig Dispense Refill citalopram (CELEXA) 10 mg tablet Take 20 mg by mouth Daily. cloNIDine (CATAPRES) 0.1 mg tablet Take 0.1 mg by mouth 2 times daily. lamotrigine (LAMICTAL) 200 MG tablet Take 400 mg by mouth Daily. traZODone (DESYREL) 100 mg tablet Take 100 mg by mouth nightly. No current facility-administered medications on file prior to visit. Objective: Vitals: 12/03/18 1102 BP: 104/68 Pulse: 94 Resp: 16 Temp: 36.9 C (98.5 F) PainSc: 4 PainLoc: Generalized Physical Exam General appearance: well-nourished, alert, appears to feel moderately unwell Head and Face: normal size and shape; no redness or lesion; no maxillary or frontal sinus t enderness to palpation EENT: Sclera and conjunctiva clear; eyelid appearance normal, normal blinking; tympanic mem brane appearance normal; intact; no signs of acute infection; hearing intact to conversation al voice; oral mucosa normal without pallor or cyanosis; normal dentition for age; lips with out lesions, moderate posterior pharynx redness/irritation with 2+ tonsillar enlargement and mild exudate Neck: trachea midline, normal appearance, no masses or tenderness Chest: lungs clear on auscultation, no tachypnea, no increased work of breathing; hacking c ough Cardiovascular: regular rate and rhythm, no abnormal heart sounds; extremities well perfuse d; no prominent bruising or discoloration Lymphatic: no cervical or preauricular lymphadenopathy Musculoskeletal: normal gait and station Skin: warm and dry to touch; no rashes in visible places Neurologic: Alert and oriented X 3; does not appear dizzy or orthostatic Recent Results (from the past 24 hour(s)) POCT Influenza A/B Result Value Ref Range Rapid Influenza A Ag Positive (A) Negative Rapid Influenza B Ag Negative Negative Internal QC Acceptable Acceptable, Not Performed Lot Number Expiration Date POCT Rapid Strep A Screen Result Value Ref Range Rapid Strep A Screen Negative Negative Internal QC Acceptable Acceptable, Not Performed CULTURE SENT TO LAB Lot Number Expiration Date None Assessment: 1. Influenza A - oseltamivir (TAMIFLU) 75 mg capsule; Take 1 capsule by mouth 2 times daily for 5 days. In dications: Flu Dispense: 10 capsule; Refill: 0 2. Flu-like symptoms - POCT Influenza A/B 3. Sore throat - POCT Rapid Strep A Screen - Culture, Respiratory, Upper Plan: Flu-like symptoms for two days with positive influenza A. Clinical exam positive for pharyn geal erythema with mild exudate. had strep throat last week so went ahead and checked a rapid strep which was negative. Will go ahead and send for culture. We discussed Tamiflu benefits and possible side effects and he decided to go ahead with a p rescription. A prescription was sent to his pharmacy. Supportive care as discussed. Written information provided Note: Daughter was also positive for influenza A today Return if symptoms worsen or fail to improve, for with pcp. Electronically signed by: JACI Brooks12/03/201812:01 [facility] Note: Part of this report was transcribed using voice recognition software. Every effort wa s made to ensure accuracy. However, inadvertent computerized library services assistant errors may be pre sent. Wilman guzman in this encounter Plan of Treatment +--------+---------+ + + + | Date | Type | Specialty | Care Team | Description | +--------+---------+ + + + | 06/04/ | Office | Primary Care | Rand Braxton | | | 2019 | Visit | | [address] | | | | | | [address] [facility], | | | | | | [place] [address] | | | | | | [phone] | | | | | | | | +--------+---------+ + + + documented as of this encounter Procedures + +--------+ + + + | Procedure Name | Priori | Date/Time | Associated Diagnosis | Comments | | | ty | | | | + +--------+ + + + | CULTURE, | Routin | 12/03/2018 | Sore throat | Results for this | | RESPIRATORY, UPPER | e | 11:50 AM | | procedure are in the | | | | PST | | results section. | + +--------+ + + + | POCT RAPID STREP A | Routin | 12/03/2018 | Sore throat | Results for this | | SCREEN | e | 11:40 AM | | procedure are in the | | | | PST | | results section. | + +--------+ + + + | POCT INFLUENZA A/B | Routin | 12/03/2018 | Flu-like symptoms | Results for this | | | e | 11:30 AM | | procedure are in the | | | | PST | | results section. | + +--------+ + + + documented in this encounter Results Culture, Respiratory, Upper (12/03/2018 11:50 AM PST) + + + + + + | Component | Value | Ref Range | Performed | Pathologist | | | | | At | Signature | + + + + + + | Culture | 1+ Beta Hemolytic | | [place] | | | | Streptococci, Group | | [facility] | | | | AComment: Penicillin is | | HOSPITAL | | | | the drug of choice for | | LABORATORY | | | | this organism. | | | | + + + + + + + + | Specimen | + + | Body Fluid - | | Specimen from throat | | (specimen) | + + + + + + + | Performing | Address | City/State/Zipcode | Phone Number | | Organization | | | | + + + + + | [facility] | [address] | [place] | [phone] | | [facility] | | [address] | | + + + + + POCT Rapid Strep A Screen (12/03/2018 11:40 AM PST) + + + + + + | Component | Value | Ref Range | Performed | Pathologist | | | | | At | Signature | + + + + + + | Rapid Strep | Negative | Negative | | | | A Screen | | | | | + + + + + + | Internal QC | Acceptable | Acceptable, Not | | | | | | Performed | | | + + + + + + | CULTURE | | | | | | SENT TO LAB | | | | | + + + + + + | Lot Number | | | | | + + + + + + | Expiration | | | | | | Date | | | | | + + + + + + + + | Specimen | + + | Body Fluid | + + POCT Influenza A/B (12/03/2018 11:30 AM PST) + + + + + + | Component | Value | Ref Range | Performed | Pathologist | | | | | At | Signature | + + + + + + | Rapid | Positive (A) | Negative | | | | Influenza A | | | | | | Ag | | | | | + + + + + + | Rapid | Negative | Negative | | | | Influenza B | | | | | | Ag | | | | | + + + + + + | Internal QC | Acceptable | Acceptable, Not | | | | | | Performed | | | + + + + + + | Lot Number | | | | | + + + + + + | Expiration | | | | | | Date | | | | | + + + + + + + + | Specimen | + + | | + + documented in this encounter Visit Diagnoses + + | Diagnosis | + + | Influenza A - Primary Influenza with other respiratory manifestations | + + | Flu-like symptoms Influenza with other respiratory manifestations | + + | Sore throat Acute pharyngitis | + + documented in this encounter
--- OUTSIDE RECORDS SUMMARY | ~2020-05-28 | XMS | Encounter Summary ---
Demographics + + + | Address | [address] | | | [place] [address] | + + + | Home Phone [...] [place] | | | | | [place] [address] | | + + + + + | James Langston | ECON | Unknown | | + + + + + Care Team Providers + +------+ + | Care Fiber Technologist Name | Role | Phone | + +------+ + PCP | Unavailable | + +------+ + Encounter Details +--------+ + + + + | Date | Type | Department | Care Team | Description | +--------+ + + + + | 02/01/ | Hospital | [facility] | Jeremiah Pierre | | | 2013 | Encounter | H[facility] EM[facility]GENCY | Lang, GEOLOGY INSTRUCTOR [address] | | | | | C[address] [place], [place] | | | | | [place], [place] | [address] | | | | | [address] | | | | | | [phone] | | | +--------+ + + + [...] | | | | | [address] [facility], | | | | | | [place] [address] | | | | | | [phone] | | | | | | | | +--------+---------+ + + + documented as of this encounter Visit Diagnoses Not on filedocumented in this encounter"
--- OUTSIDE RECORDS SUMMARY | ~2020-05-28 | XMS | Encounter Summary ---
Demographics + + + | Address | [address] | | | [place] [address] | + + + | Home Phone | | + + + | Preferred Language | Unknown | + + + | Marital Status | | + + + | Mu-Ism Affiliation | 1013 | + + + | Race | Unknown | + + + | Ethnic Group | Unknown | + + + Author + + + | Author | [facility] | | | and [place] | + + + | Organization | [facility] | | | [...] | | | | | [place] [address] | | + + + + + | James Langston | ECON | Unknown | | + + + + + Care Team Providers + +------+ + | Care Director [facility] Name | Role | Phone | + +------+ + | Ferdinand Arguello MD | PCP | | + +------+ + Encounter Details +--------+ + + + + | Date | Type | Department | Care Team | Description | +--------+ + + + + | 10/19/ | Orders Only | [facility] | Lupe Yun | | | 2015 | | [facility] | MD [address] | | | | | [facility] | [address] [facility] | | | | | [address] | [place] [address] | | | | | [address] [facility] [place] [facility] [place], [place] | [phone] | | | | | [address] | | | | | | [phone] | | | +--------+ + + + [...] | | | | | | [address] [facility], | | | | | | [place] [address] | | | | | | [phone] | | | | | | | | +--------+---------+ + + + documented as of this encounter Procedures + +--------+ + + + | Procedure Name | Priori | Date/Time | Associated Diagnosis | Comments | | | ty | | | | + +--------+ + + + | DRUGS OF ABUSE, | STAT | 10/19/2015 | | Results for this | | SCREEN, URINE | | 10:57 AM | | procedure are in the | | | | PST | | results section. | + +--------+ + + + | URINALYSIS WITH | STAT | 10/19/2015 | | Results for this | | MICROSCOPIC IF | | 10:57 AM | | procedure are in the | | INDICATED | | PST | | results section. | + +--------+ + + + | ALCOHOL | STAT | 10/19/2015 | | Results for this | | | | 10:57 AM | | procedure are in the | | | | PST | | results section. | + +--------+ + + + | COMPREHENSIVE | STAT | 10/19/2015 | | Results for this | | METABOLIC PANEL | | 10:57 AM | | procedure are in the | | | | PST | | results section. | + +--------+ + + + | CBC WITH MANUAL | Routin | 10/19/2015 | | Results for this | | DIFFERENTIAL | e | 10:40 AM | | procedure are in the | | | | PST | | results section. | + +--------+ + + + documented in this encounter Results Drugs of Abuse, Screen, Urine (10/19/2015 10:57 AM PST) + + + + + + | Component | Value | Ref Range | Performed | Pathologist | | | | | At | Signature | + + + + + + | Barbiturate | NEG | Negative | EXTERNAL | | | s Screen, | | | LAB | | | Urine | | | | | + + + + + + | Benzodiazep | NEG | Negative - | EXTERNAL | | | leah | | | LAB | | | Screen, | | | | | | Urine | | | | | + + + + + + | Opiates | NEG | Negative - | EXTERNAL | | | Screen, | | | LAB | | | Urine | | | | | + + + + + + | Phencyclidi | NEG | Negative - | EXTERNAL | | | ne Screen, | | | LAB | | | Urine | | | | | + + + + + + | Amphetamine | NEG | Negative - | EXTERNAL | | | Screen, | | | LAB | | | Urine | | | | | + + + + + + | Cannabinoid | NEG | Negative - | EXTERNAL | | | s Screen, | | | LAB | | | Urine | | | | | + + + + + + | Tricyclics, | NEG | Negative - | EXTERNAL | | | UR | | | LAB | | + + + + + + | Cocaine | NEG | Negative - | EXTERNAL | | | Screen, | | | LAB | | | Urine | | | | | + + + + + + | Methampheta | NEG | Negative - | EXTERNAL | | | mine | | | LAB | | | Screen, | | | | | | Urine | | | | | + + + + + + | Methadone | NEG | Negative - | EXTERNAL | | | Screen, | | | LAB | | | Urine | | | | | + + + + + + | Oxycodone | NEG | Negative - | EXTERNAL | | | Screen, | | | LAB | | | Urine | | | | | + + + + + + | Propoxyphen | NEG | Negative - | EXTERNAL | | | e Screen, | | | LAB | | | Urine | | | | | + + + + + + | Buprenorphi | NEGComment: All POSITIVE | Negative - | EXTERNAL | | | ne Screen, | (POS) results are | | LAB | | | Urine | considered | | | | | | 'Presumptively Positive' | | | | | | based on the cut-offs | | | | | | and limitations of this | | | | | | testing platform. Please | | | | | | contact the lab if you | | | | | | would like to order | | | | | | confirmatory testing for | | | | | | any analyte. | | | | + + + + + + + + | Specimen | + + | | + + + +---------+ + + | Performing | Address | City/State/Zipcode | Phone Number | | Organization | | | | + +---------+ + + | EXTERNAL LAB | | | | + +---------+ + + Urinalysis with Microscopic if Indicated (10/19/2015 10:57 AM PST) + + + + + + | Component | Value | Ref Range | Performed | Pathologist | | | | | At | Signature | + + + + + + | Amorphous | None Seen | None Seen /HPF | EXTERNAL | | | Crystals, | | | LAB | | | Urine | | | | | + + + + + + | Bacteria, | None Seen | None Seen,Trace | EXTERNAL | | | Urine | | /HPF | LAB | | + + + + + + | Bilirubin, | Negative | Negative - | EXTERNAL | | | Urine | | | LAB | | + + + + + + | CASTS | None Seen | None Seen /LPF | EXTERNAL | | | | | | LAB | | + + + + + + | Clarity, | Clear | - | EXTERNAL | | | Urine | | | LAB | | + + + + + + | Color, | Yellow | - | EXTERNAL | | | Urine | | | LAB | | + + + + + + | Crystal | None Seen | None Seen /LPF | EXTERNAL | | | Type, Body | | | LAB | | | Fluid | | | | | + + + + + + | Epithelial | Rare | None Seen /HPF | EXTERNAL | | | Cells | | | LAB | | + + + + + + | Glucose, | Negative | Negative mg/dL | EXTERNAL | | | Urine | | | LAB | | + + + + + + | Ketones, | Negative | Negative mg/dL | EXTERNAL | | | Urine | | | LAB | | + + + + + + | Leukocyte | Negative | Negative - | EXTERNAL | | | Esterase, | | | LAB | | | Urine | | | | | + + + + + + | Mucus, | None Seen | None Seen,Trace | EXTERNAL | | | Urine | | /HPF | LAB | | + + + + + + | Nitrite, | Negative | Negative - | EXTERNAL | | | Urine | | | LAB | | + + + + + + | pH, Urine | 5.5 | 5.0 - 8.0 - | EXTERNAL | | | | | | LAB | | + + + + + + | Protein, | Negative | Negative mg/dL | EXTERNAL | | | Urine | | | LAB | | + + + + + + | Red Blood | Rare | None Seen /HPF | EXTERNAL | | | Cells, | | | LAB | | | Urine | | | | | + + + + + + | Specific | 1.011 | - | EXTERNAL | | | [place], | | | LAB | | | Urine | | | | | + + + + + + | White Blood | None Seen | None Seen /HPF | EXTERNAL | | | Cells, | | | LAB | | | Urine | | | | | + + + + + + | YEAST | None Seen | None Seen /HPF | EXTERNAL | | | | | | LAB | | + + + + + + | Blood, | Small (A) | Negative - | EXTERNAL | | | Urine | | | LAB | | + + + + + + | Urobilinoge | 0.2 E.U./dL | 0.2 E.U./dL | EXTERNAL | | | n, Urine | | | LAB | | + + + + + + | Culture | NO | NO - | EXTERNAL | | | | | [...] | | + +---------+ + + Ethanol (10/19/2015 10:57 AM PST) + + + + + + | Component | Value | Ref Range | Performed | Pathologist | | | | | At | Signature | + + + + + + | ALCOHOL, | <3.0Comment: To convert | 0.0 - 3.0 mg/dL | EXTERNAL | | | SERUM/PLASM | to % move the decimal | | LAB | | | A | point 3 places to the | | | | | | left. | | | | + + + + + + + + | Specimen | + + | | + + + +---------+ + + | Performing | Address | City/State/Zipcode | Phone Number | | Organization | | | | + +---------+ + + | EXTERNAL LAB | | | | + +---------+ + + Comprehensive Metabolic Panel (10/19/2015 10:57 AM PST) + + + + + + | Component | Value | Ref Range | Performed | Pathologist | | | | | At | Signature | + + + + + + | Albumin | 4.1 | 3.0 - 4.5 g/dL | EXTERNAL | | | | | | LAB | | + + + + + + | Creatinine | 1.09 | 0.70 - 1.40 | EXTERNAL | | | | | mg/dL | LAB | | + + + + + + | Total | 7.7 | 6.6 - 8.5 g/dL | EXTERNAL | | | Protein | | | LAB | | + + + + + + | Calcium | 9.2 | 8.3 - 10.0 | EXTERNAL | | | | | mg/dL | LAB | | + + + + + + | K | 3.8 | 3.3 - 4.9 | EXTERNAL | | | | | mmol/L | LAB | | + + + + + + | Na | 133 (L) | 134 - 144 | EXTERNAL | | | | | mmol/L | LAB | | + + + + + + | Cl | 101 | 95 - 108 mmol/L | EXTERNAL | | | | | | LAB | | + + + + + + | CO2 | 24.0 | 23.0 - 34.0 | EXTERNAL | | | | | mmol/L | LAB | | + + + + + + | BUN | 12 | 5 - 26 mg/dL | EXTERNAL | | | | | | LAB | | + + + + + + | ALT | 58 | 18 - 63 U/L | EXTERNAL | | | | | | LAB | | + + + + + + | AST | 27 | 16 - 38 U/L | EXTERNAL | | | | | | LAB | | + + + + + + | Bilirubin | 0.40 | 0.00 - 1.00 | EXTERNAL | | | Total | | mg/dL | LAB | | + + + + + + | Alkaline | 75 | 50 - 136 U/L | EXTERNAL | | | Phosphatase | | | LAB | | + + + + + + | Glucose | 131 (H) | 70 - 110 mg/dL | EXTERNAL | | | | | | LAB | | + + + + + + | Albumin/Jyotsna | 1.1 | 1.0 - 2.5 - | EXTERNAL | | | bulin Ratio | | | LAB | | + + + + + + | Anion Gap | 8.0 | 7.0 - 16.0 | EXTERNAL | | | | | mmol/L | LAB | | + + + + + + | BUN/Creatin | 11.0 | 7.0 - 24.0 | EXTERNAL | | | ine Ratio | | mg/dL | LAB | | + + + + + + | Globulin | 3.6 (H) | 1.5 - 3.5 g/dL | EXTERNAL | | | | | | LAB | | + + + + + + | GFR | 79.43 | - | EXTERNAL | | | ESTIMATE | Comment: | | LAB | | | (REF) | GFR Male | | | | | | "Units = mL/min/1.73m2 | | | | | | | | | | + + + + + + | Osmolality, | 268 (L) | 275 - 295 | EXTERNAL | | | Serum | | mOsm-kg | LAB | | + + + + + + + + | Specimen | + + | | + + + + + | Narrative | Performed At | + + + | To estimate the GFR for Americans, multiply the result | EXTERNAL LAB | | provided by 1.21 Normal: Equal | | | to or greater than 60 mL/min/1.73m2. Chronic Kidney | | | Disease: Less than 60 mL/min/1.73m2, if found over a 3 month period. | | | Kidney Failure: Less than 15 mL/min/1.73m2. GFR | | | calculation is not valid for patients under age 18 years. For | | | patients over age 70 years please interpret results with caution as | | | results have not been validated for this calculation method." To | | | estimate the GFR for Americans, multiply the result provided | | | by 1.21 Normal: Equal to or | | | greater than 60 mL/min/1.73m2. Chronic Kidney Disease: Less | | | than 60 mL/min/1.73m2, if found over a 3 month period. | | | Kidney Failure: Less than 15 mL/min/1.73 m2. GFR | | | calculation is not valid for patients under age 18 years. For | | | patients over age 70 years please interpret results with caution as | | | results have not been validated for this calculation method." | | + + + + +---------+ + + | Performing | Address | City/State/Zipcode | Phone Number | | Organization | | | | + +---------+ + + | EXTERNAL LAB | | | | + +---------+ + + CBC with Manual Differential (10/19/2015 10:40 AM PST) + +-------+ + + + | Component | Value | Ref Range | Performed | Pathologist | | | | | At | Signature | + +-------+ + + + | Red Blood | 5.20 | 4.50 - 6.00 | EXTERNAL | | | Cells | | MIL/uL | LAB | | + +-------+ + + + | White Blood | 5.9 | 4.5 - 11.0 K/uL | EXTERNAL | | | Cells | | | LAB | | + +-------+ + + + | Hematocrit | 43.7 | 39.0 - 51.9 % | EXTERNAL | | | | | | LAB | | + +-------+ + + + | Hemoglobin | 15.6 | 13.1 - 17.4 | EXTERNAL | | | | | g/dL | LAB | | + +-------+ + + + | Platelet | 247 | 140 - 440 K/uL | EXTERNAL | | | Count | | | LAB | | + +-------+ + + + | Absolute | 0.03 | 0.00 - 0.20 | EXTERNAL | | | Basophils | | K/uL | LAB | | + +-------+ + + + | % Basophils | 0.5 | 0 - 3 % | EXTERNAL | | | | | | LAB | | + +-------+ + + + | % | 0.7 | 0.0 - 7.0 % | EXTERNAL | | | Eosinophils | | | LAB | | + +-------+ + + + | Absolute | 0.04 | 0.00 - 2.50 | EXTERNAL | | | Eosinophils | | K/uL | LAB | | + +-------+ + + + | Absolute | 1.65 | 0.60 - 3.40 | EXTERNAL | | | Lymphocytes | | K/uL | LAB | | + +-------+ + + + | % | 27.9 | 10.0 - 50.0 % | EXTERNAL | | | Lymphocytes | | | LAB | | + +-------+ + + + | Absolute | 0.35 | 0.00 - 4.00 | EXTERNAL | | | Monocytes | | K/uL | LAB | | + +-------+ + + + | % Monocytes | 5.9 | 0.0 - 12.0 % | EXTERNAL | | | | | | LAB | | + +-------+ + + + | Absolute | 3.70 | 1.67 - 8.80 | EXTERNAL | | | Neutrophils | | K/uL | LAB | | + +-------+ + + + | % | 62.5 | 37 - 80 % | EXTERNAL | | | Neutrophils | | | LAB | | + +-------+ + + + | MCH | 30.0 | 26.0 - 32.0 pg | EXTERNAL | | | | | | LAB | | + +-------+ + + + | MCHC | 35.7 | 31.0 - 36.0 | EXTERNAL | | | | | g/dL | LAB | | + +-------+ + + + | MCV | 84 | 75 - 95 fL | EXTERNAL | | | | | | LAB | | + +-------+ + + + | RDW-CV | 13.1 | 11.6 - 14.8 % | EXTERNAL | | | | | | LAB | | + +-------+ + + + | SLIDE | No | | EXTERNAL | | | REVIEWED | | | LAB | | + +-------+ + + + | Manual | No | | EXTERNAL | | | Diff? | | | LAB | | + [...]
[~2020-05-28 10:28] MED LIST: IBUPROFEN800 MG PO; LAMICTAL XR300 MG PO; NORCO 5-325 TA1 EACH PO; ZOFRAN ODT4 MG PO
--- OUTSIDE RECORDS SUMMARY | 2020-05-28 10:30 | XMS ---
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 IF DEPRESSED MAY PRESENT WITH SUICIDAL IDEATION. RECOMMEND CALLING [facility] CRISIS [facility]. 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 VISIT COUNT (12 MO.) 1 Christiano Vela [facility] TOTAL 2 NOTE: Visits indicate total known visits. ED/UCC VISIT TRACKING (12 MO.) 05/28/2020 10:28 [place] [place] TYPE: Emergency COMPLAINT: - FEVER 06/20/2019 10:09 Christiano IYER [place] TYPE: Emergency DIAGNOSES: - Strain of muscle, fascia and tendon of lower back, initial en - Sacroiliitis, not elsewhere classified - Back Pain - Muscle spasm of back INPATIENT VISIT TRACKING (12 MO.) No inpatient visits to display in this time frame [email or web address]
[2020-05-28] MEDS ORDERED: LITHIUM CARBON300 MG PO (10:43)
[2020-05-28] MEDS ORDERED: HYDROXYZINE PAM25 MG PO (10:43)
[2020-05-28] MEDS ORDERED: CLONIDINE HCL0.1 MG PO (10:43)
--- NOTE | 2020-05-29 22:12 | EKG ---
[facility] [address] [place] [address] Signed Sinus tachycardia Otherwise normal ECG No previous ECGs available Confirmed by BRI MIRANDA MD ([id number]) on 05/29/2020 10:12:17 PM Electronically Signed By: BRI MIRANDA MD 05/29/20 2212 PATIENT NAME: MAURICE DENNIS Electrocardiogram DATE OF : 83 PHYSICIAN: BRI MIRANDA MD REPORT #: [id number] REPORT IS CONFIDENTIAL AND NOT TO BE RELEASED WITHOUT AUTHORIZATION
== END 2020-05-28 12:33 | disposition home or self-care (01) ==
LOC: ED 10:28
DX: R50.9 Fever, unspecified (principal); R05 Cough; R19.7 Diarrhea, unspecified; R11.10 Vomiting, unspecified; Z20.828 Contact with and (suspected) exposure to other viral communicable diseases; G43.909 Migraine, unspecified, not intractable, without status migrainosus; Z79.899 Other long term (current) drug therapy
CPT/HCPCS: 71045; 80053; 81001; 83605; 85025; 93005; 93010; 99284-25; C9803; J7030; U0002